=== PATIENT | male | born 1960 | race American Indian/Alaskan Native ===

== ENCOUNTER 2018-08-30 17:50 | Inpatient (IN) | payer OTHER ==
--- NOTE | 2018-08-30 19:03 | Emergency Department Report ---
- General Chief complaint: Weakness Stated complaint: WEAKNESS,PASSING OUT,FALLING Time Seen by Provider: 08/30/18 18:24 Source: patient Mode of arrival: Ambulatory Limitations: No Limitations - History of Present Illness Initial comments: 57-year-old male with history of alcohol abuse presents to ED requesting alcohol detox. states she took patient to [facility] for alcohol rehabilitation, but was instructed that he needed to come to the ER for medical clearance. states patient has long history of alcohol abuse. states patient has been getting worse over the past year, drinking more often and having more frequent falls while intoxicated, having a decreased appetite, having mood swings. The patient was diagnosed with fatty liver and also possible cirrhosis. Patient has no complaints. States he drinks vodka daily. He states he is ready for rehabilitation. Patient states last drink was last night at 9 PM Complaint: generalized weakness -: unknown Location: generalized Consistency: intermittent Improves with: none Worsens with: none Associated Symptoms: nausea/vomiting, shortness of breath, syncope. denies: chest pain, fever/chills, headaches - Related Data Home Medications Medication Instructions Recorded Confirmed Last Taken Amoxicillin 500 mg PO TID 09/01/18 09/01/18 08/30/18 Folic Acid 400 mcg PO DAILY 09/01/18 09/01/18 08/30/18 Tessalon Perles 200 mg PO TID PRN 09/01/18 09/01/18 08/30/18 chlorproMAZINE 25 mg PO TID PRN 09/01/18 09/01/18 08/30/18 Allergies Allergy/AdvReac Type Severity Reaction Status Date / Time No Known Allergies Allergy Verified 08/30/18 18:22 ED Review of Systems ROS: Stated complaint: WEAKNESS,PASSING OUT,FALLING Other details as noted in HPI Comment: All other systems reviewed and negative Constitutional: denies: chills, fever Respiratory: shortness of breath Cardiovascular: denies: chest pain Gastrointestinal: nausea, vomiting. denies: abdominal pain Neurological: denies: headache ED Past Medical Hx - Past Medical History Previous Medical History?: Yes Hx GERD: Yes Hx Liver Disease: Yes (Hepatitis due to ETOH abuse) Additional medical history: Dizziness, Dermatitis, Epigastric abdominal pain, Elevated liver function test, Gastritis, Thrombocytopenia, Both sides inquinal hernia, Sinus problems - Surgical History Past Surgical History?: No - Social History Smoking Status: Current Every Day Smoker Substance Use Type: Alcohol, Marijuana, Prescribed - Medications Home Medications: Home Medications Medication Instructions Recorded Confirmed Last Taken Type Amoxicillin 500 mg PO TID 09/01/18 09/01/18 08/30/18 History Folic Acid 400 mcg PO DAILY 09/01/18 09/01/18 08/30/18 History Tessalon Perles 200 mg PO TID PRN 09/01/18 09/01/18 08/30/18 History chlorproMAZINE 25 mg PO TID PRN 09/01/18 09/01/18 08/30/18 History ED Physical Exam - General Limitations: No Limitations General appearance: alert, in no apparent distress, other (appears frail) - Head Head exam: Present: atraumatic, normocephalic - Eye Eye exam: Present: scleral icterus (slight) - ENT ENT exam: Present: mucous membranes moist - Neck Neck exam: Present: normal inspection - Respiratory Respiratory exam: Present: normal lung sounds bilaterally. Absent: respiratory distress - Cardiovascular Cardiovascular Exam: Present: normal rhythm, tachycardia - GI/Abdominal GI/Abdominal exam: Present: soft. Absent: distended, tenderness - Extremities Exam Extremities exam: Present: normal inspection - Neurological Exam Neurological exam: Present: alert, oriented X3, CN II-XII intact, other (no tremor noted). Absent: motor sensory deficit - Psychiatric Psychiatric exam: Present: normal affect, normal mood - Skin Skin exam: Present: warm, dry, intact, normal color ED Course Vital Signs 08/30/18 08/30/18 08/30/18 17:57 21:16 22:32 Temperature 97.6 F Pulse Rate 127 H 105 H 108 H Respiratory 18 16 16 Rate Blood Pressure 126/66 Blood Pressure 125/73 117/68 [Left] O2 Sat by Pulse 98 96 96 Oximetry 08/31/18 08/31/18 08/31/18 08:57 09:12 09:16 Temperature Pulse Rate 99 H 88 Respiratory 15 21 Rate Blood Pressure 144/84 Blood Pressure [Left] O2 Sat by Pulse 95 98 97 Oximetry 08/31/18 08/31/18 08/31/18 09:30 09:46 10:00 Temperature Pulse Rate 87 77 101 H Respiratory 17 14 18 Rate Blood Pressure 118/70 123/78 Blood Pressure [Left] O2 Sat by Pulse 97 96 98 Oximetry 08/31/18 08/31/18 08/31/18 10:16 10:30 10:46 Temperature Pulse Rate 84 88 90 Respiratory 14 15 18 Rate Blood Pressure 123/78 123/78 123/78 Blood Pressure [Left] O2 Sat by Pulse 98 98 99 Oximetry 08/31/18 08/31/18 08/31/18 11:00 11:16 11:30 Temperature Pulse Rate 92 H 175 H 96 H Respiratory 15 30 H 21 Rate Blood Pressure 124/79 124/79 124/79 Blood Pressure [Left] O2 Sat by Pulse 97 96 93 Oximetry 08/31/18 08/31/18 08/31/18 11:46 12:00 12:16 Temperature Pulse Rate 102 H 89 90 Respiratory 19 20 16 Rate Blood Pressure 124/79 123/78 124/79 Blood Pressure [Left] O2 Sat by Pulse 97 98 Oximetry 08/31/18 08/31/18 08/31/18 12:30 12:46 13:00 Temperature Pulse Rate 91 H 117 H 117 H Respiratory 17 26 H 22 Rate Blood Pressure 123/78 123/78 Blood Pressure [Left] O2 Sat by Pulse 97 94 93 Oximetry 08/31/18 08/31/18 08/31/18 13:16 13:30 13:46 Temperature Pulse Rate 109 H 89 100 H Respiratory 21 23 25 H Rate Blood Pressure 128/68 128/68 128/68 Blood Pressure [Left] O2 Sat by Pulse 96 98 98 Oximetry 08/31/18 08/31/18 08/31/18 14:00 14:16 14:30 Temperature Pulse Rate 99 H 114 H 106 H Respiratory 20 24 20 Rate Blood Pressure 134/71 134/71 134/71 Blood Pressure [Left] O2 Sat by Pulse 100 98 96 Oximetry 08/31/18 08/31/18 14:46 15:02 Temperature 98.4 F Pulse Rate 121 H 104 H Respiratory 24 18 Rate Blood Pressure 134/71 120/71 Blood Pressure [Left] O2 Sat by Pulse 98 98 Oximetry ED Medical Decision Making - Lab Data Result diagrams: 09/03/18 05:42 09/03/18 05:42 - EKG Data -: EKG Interpreted by Md EKG shows normal: sinus rhythm, axis, intervals, QRS complexes, ST-T waves Rate: tachycardia - EKG Data Interpretation: no acute changes - Radiology Data Radiology results: report reviewed, image reviewed - Medical Decision Making 57 yo M here for medical clearance for alcohol detox. Workup normal, except for known liver disease. Pt was initially tachycardic. Likely due to dehydration, pt reports he has had decreased appetite lately. Pt does not appear to be in withdrawal, not hypertensive, not tremulous. Pt given one banana bag and 2L of NS. Drug screen was also positive for amphetamines, which could have also caused his tachycardia. HR currently normal, in the 90s. Pt is medically clear for psychiatric admission. - Differential Diagnosis alcohol abuse, intrcranial bleed, electrolyte abnormality Critical care attestation.: If time is entered above; I have spent that time in minutes in the direct care of this critically ill patient, excluding procedure time. ED Disposition Clinical Impression: Alcohol abuse, Alcohol withdrawal, Tachycardia, Hyponatremia, Abnormal EKG, Chr onic liver disease, Amphetamine abuse, Cachexia Disposition: DC/TX-65 PSY HOSP/PSY UNIT Is pt being admited?: No Condition: Stable
[2018-08-30 19:41] LABS: Hematocrit 30.9 % (35.5-45.6); Mean Corpuscular HGB Conc 33 % (32-34); Mean Corpuscular Hemoglobin 29 pg (28-32); Mean Corpuscular Volume 89 fl (84-94); Red Blood Count 3.49 M/mm3 (3.65-5.03); Red Cell Distribution Width 15.1 % (13.2-15.2)
[2018-08-30 19:52] LABS: INR 1.21 (0.87-1.13); Partial Thromboplastin Time 28.6 Sec. (24.2-36.6)
[2018-08-30 19:59] LABS: Alanine Aminotransferase 41 units/L (7-56); Albumin 2.9 g/dL (3.9-5); BUN/Creatinine Ratio 8; Blood Urea Nitrogen 5 mg/dL (9-20); Calcium 8.3 mg/dL (8.4-10.2); Hemolysis Index 2
[2018-08-30] MEDS ORDERED: VITAMIN B-1 100 MG, FOLVITE 1 MG, INFUVITE 10 ML in NACL 0.9% 1000 ML 1,000 ML IV ONE (20:02)
--- NOTE | 2018-08-30 20:07 | XRay Report ---
FINAL REPORT EXAM: XR CHEST 1V AP HISTORY: sob COMPARISON: None available. FINDINGS: Frontal view(s) of the chest obtained. Cardiac silhouette within normal limits. No gross consolidatio n or effusion. No pneumothorax. IMPRESSION: No grossly acute findings.
--- NOTE | 2018-08-30 20:35 | Cat Scan Report ---
FINAL REPORT EXAM: CT HEAD/BRAIN WO CON HISTORY: frequent falls COMPARISON: None available. TECHNIQUE: Axial images obtained skull base through vertex. FINDINGS: No acute intracranial hemorrhage, midline shift or pathologic extra axial fluid collection. Ventricle s and cisterns are normal in size and configuration for the patient's age. Mederos-white differentiation preserved. Calvarium grossly intact. Ocular globes are grossly unremarkable. IMPRESSION: No grossly acute intracranial abnormality.
[2018-08-30 20:42] LABS: Band Neutrophils # (Manual) 0.2 K/mm3; Eosinophils % (Manual) 0 % (0.0-4.3); Total Cells Counted 100
[2018-08-30 20:44] LABS: Target Cells 1+
[2018-08-30 20:45] LABS: Hypochromasia 1+; Platelet Count 53 K/mm3 (140-440); Platelet Estimate Appears Decreased
[2018-08-30 21:29] LABS: Bilirubin,Urine SM (Negative); Blood,Urine NEG (Negative); Color,Urine Amber (Yellow); Hyaline Casts,Urine 3 /LPF; Mucus,Urine FEW /HPF
[2018-08-30] MEDS ORDERED: NACL 0.9% 1000 ML 1,000 ML IV ONE ×2 (22:04→23:55)
[2018-08-30 22:53] LABS: Ictotest,Urine Negative (Negative)
[2018-08-31 01:54] LABS: Benzodiazepines Screen,Urine PRESUMPTIVE NEGATIVE; Cannabinoid Screen,Urine PRESUMPTIVE NEGATIVE; Cocaine Screen,Urine PRESUMPTIVE NEGATIVE; Methadone Screen,Urine PRESUMPTIVE NEGATIVE; Opiate Screen,Urine PRESUMPTIVE NEGATIVE
[2018-08-31] MEDS ORDERED: ATIVAN PO ONE (02:11)
[2018-08-31 02:38] LABS: Amphetamine Screen,Urine PRESUMPTIVE POSITIVE
--- NOTE | 2018-08-31 13:16 | Consultation ---
History of Present Illness - Reason for Consult Consult date: 08/31/18 Reason for consult: Mental Health Evaluation Requesting physician: LAILA LOPEZ - Chief Complaint Chief complaint: "I want to stop drinking" - History of Present Psychiatric Illness 57-year-old AA male with history of alcohol abuse presents to ED requesting alcohol detox. Today the patient is calm and cooperative during the assessment. He stated a long hx of alcohol abuse. He stated that he would like help with staying sober. He stated that he haven't been to rehab services in the past. He stated that he enjoy drinking because of the taste. Per the patient's Mrs Muna Arriaga, she stated that she was referred to [facility] by [facility] November 2017. She stated that her didn't go to [facility] because he st opped drinking (etoh), but relapsed recently. They both agree that [facility] would be the facility of choice once medically clear. The patient denies depression, SI/HI's, AVH''s. He denies erratic sleep and a poor appetite. He denies recreational drug use. Medications and Allergies Allergies Allergy/AdvReac Type Severity Reaction Status Date / Time No Known Allergies Allergy Verified 08/30/18 18:22 Mental Status Exam - Vital signs Last Vital Signs Temp 97.6 F 08/30/18 17:57 Pulse 90 08/31/18 12:16 Resp 16 08/31/18 12:16 BP 124/79 08/31/18 12:16 Pulse Ox 98 08/31/18 12:16 - Exam Narrative exam: MSE: Appearance: calm, cooperative Behavior: regular eye contact Speech: regular rate and tone Mood: "okay" Affect: congruent to mood Thought Process: logical Thought Content: denies SI/HI's and AVH's Motor Activity: lying in bed Cognition: A/O x3 Insight: appropriate Judgment: fair Results Result Diagrams: 08/31/18 13:49 08/31/18 13:49 Abnormal lab results 08/30/18 08/30/18 08/30/18 Range/Units 19:16 19:16 19:16 WBC 4.4 L (4.5-11.0) K/mm3 RBC 3.49 L (3.65-5.03) M/mm3 Hgb 10.0 L (11.8-15.2) gm/dl Hct 30.9 L (35.5-45.6) % Plt Count 53 L (140-440) K/mm3 Seg Neuts % (Manual) 84.0 H (40.0-70.0) % Lymphocytes % (Manual) 8.0 L (13.4-35.0) % Lymphocytes # (Manual) 0.4 L (1.2-5.4) K/mm3 PT 15.7 H (12.2-14.9) Sec. INR 1.21 H (0.87-1.13) Sodium 133 L (137-145) mmol/L Potassium 3.5 L (3.6-5.0) mmol/L Chloride 93.1 L (98-107) mmol/L BUN 5 L (9-20) mg/dL Creatinine 0.6 L (0.8-1.5) mg/dL Glucose 108 H (75-100) mg/dL Calcium 8.3 L (8.4-10.2) mg/dL Total Bilirubin 1.60 H (0.1-1.2) mg/dL AST 229 H (5-40) units/L Alkaline Phosphatase 157 H (35-129) units/L Albumin 2.9 L (3.9-5) g/dL Urine WBC (Auto) (0.0-6.0) /HPF 08/30/18 Range/Units 21:16 WBC (4.5-11.0) K/mm3 RBC (3.65-5.03) M/mm3 Hgb (11.8-15.2) gm/dl Hct (35.5-45.6) % Plt Count (140-440) K/mm3 Seg Neuts % (Manual) (40.0-70.0) % Lymphocytes % (Manual) (13.4-35.0) % Lymphocytes # (Manual) (1.2-5.4) K/mm3 PT (12.2-14.9) Sec. INR (0.87-1.13) Sodium (137-145) mmol/L Potassium (3.6-5.0) mmol/L Chloride (98-107) mmol/L BUN (9-20) mg/dL Creatinine (0.8-1.5) mg/dL Glucose (75-100) mg/dL Calcium (8.4-10.2) mg/dL Total Bilirubin (0.1-1.2) mg/dL AST (5-40) units/L Alkaline Phosphatase (35-129) units/L Albumin (3.9-5) g/dL Urine WBC (Auto) 7.0 H (0.0-6.0) /HPF All other labs normal. Assessment and Plan Assessment and plan: Impression: Alcohol Use DO. Today the patient is calm and cooperative during the assessment. Mild tremors noted (etoh). The patient is tachycardic. DDx: R/O Mood DO Recommendation/Plan: Recommend [facility] Protocol. Dispo: Assist patient with placement to [facility] if medically clear. Will staff with Dr Surjit Chavez.
[2018-08-31] MEDS ORDERED: ATIVAN IV ONE (13:19)
[2018-08-31] MEDS ORDERED: VITAMIN B-1 100 MG, FOLVITE 1 MG, INFUVITE 10 ML in NACL 0.9% 1000 ML 1,000 ML IV ONE (13:19)
--- NOTE | 2018-08-31 13:31 | Emergency Department Report ---
ED General Adult HPI - General Chief complaint: Weakness Stated complaint: WEAKNESS,PASSING OUT,FALLING Time Seen by Provider: 08/30/18 18:24 Source: patient Mode of arrival: Ambulatory Limitations: No Limitations - History of Present Illness Initial comments: This is a 57-year-old alcoholic man who was initially asked to discharge by nurse. It was not evident that discharge was appropriate. Therefore, I reviewed his records and saw the patient. Records indicate: 57-year-old male with history of alcohol abuse presents to ED requesting alcohol detox. states she just patient to [facility] for alcohol rehabilitation, but was instructed that he needed to come to the ER for similar medical clearance. states patient has long history of alcohol abuse. states patient has been getting worse over the past year, drinking more often and having more frequent falls while intoxicated, having a decreased appetite, having mood swings. The patient was diagnosed with fatty liver and also possible cirrhosis. Patient has no complaints. States he drinks vodka daily. He states he is ready for rehabilitation. Patient states last drink was last night at 9 PM. Patient tells me that he feels weak in general. He states he's passed out. He does not report head trauma. I sees had a CT yesterday showed no acute intracranial pathology. He was given fluids and Ativan. He is oriented at this time. He states he is not tremulous but he obviously is. He denies previous seizures. He is a virus for alcohol detoxification. He is also positive for amphetamines. - Related Data Allergies Allergy/AdvReac Type Severity Reaction Status Date / Time No Known Allergies Allergy Verified 08/30/18 18:22 ED Review of Systems ROS: Stated complaint: WEAKNESS,PASSING OUT,FALLING Other details as noted in HPI Constitutional: denies: chills, fever Respiratory: shortness of breath Cardiovascular: denies: chest pain Gastrointestinal: nausea, vomiting. denies: abdominal pain Neurological: denies: headache ED Past Medical Hx - Past Medical History Previous Medical History?: Yes Hx GERD: Yes Hx Liver Disease: Yes (Hepatitis due to ETOH abuse) Additional medical history: Dizziness, Dermatitis, Epigastric abdominal pain, Elevated liver function test, Gastritis, Thrombocytopenia, Both sides inquinal hernia, Sinus problems - Surgical History Past Surgical History?: No - Social History Smoking Status: Current Every Day Smoker Substance Use Type: Alcohol, Marijuana, Prescribed ED Physical Exam - General Limitations: No Limitations General appearance: alert, in no apparent distress, other (appears frail) ED Course Vital Signs 08/30/18 08/30/18 08/30/18 17:57 21:16 22:32 Temperature 97.6 F Pulse Rate 127 H 105 H 108 H Respiratory 18 16 16 Rate Blood Pressure 126/66 Blood Pressure 125/73 117/68 [Left] O2 Sat by Pulse 98 96 96 Oximetry 08/31/18 08/31/18 08/31/18 08:57 09:12 09:16 Temperature Pulse Rate 99 H 88 Respiratory 15 21 Rate Blood Pressure 144/84 Blood Pressure [Left] O2 Sat by Pulse 95 98 97 Oximetry 08/31/18 08/31/18 08/31/18 09:30 09:46 10:00 Temperature Pulse Rate 87 77 101 H Respiratory 17 14 18 Rate Blood Pressure 118/70 123/78 Blood Pressure [Left] O2 Sat by Pulse 97 96 98 Oximetry 08/31/18 08/31/18 08/31/18 10:16 10:30 10:46 Temperature Pulse Rate 84 88 90 Respiratory 14 15 18 Rate Blood Pressure 123/78 123/78 123/78 Blood Pressure [Left] O2 Sat by Pulse 98 98 99 Oximetry 08/31/18 08/31/18 08/31/18 11:00 11:16 11:30 Temperature Pulse Rate 92 H 175 H 96 H Respiratory 15 30 H 21 Rate Blood Pressure 124/79 124/79 124/79 Blood Pressure [Left] O2 Sat by Pulse 97 96 93 Oximetry 08/31/18 08/31/18 08/31/18 11:46 12:00 12:16 Temperature Pulse Rate 102 H 89 90 Respiratory 19 20 16 Rate Blood Pressure 124/79 123/78 124/79 Blood Pressure [Left] O2 Sat by Pulse 97 98 Oximetry - Reevaluation(s) Reevaluation #1: Spoke with the [facility] physician on-call Dr. Palma. They have authorized admission here. I have expanded the patient's workup. I will discuss the plan with Dr. Leigh. The patient will be admitted to the hospitalist service by Dr. Leigh. 08/31/18 13:39 ED Medical Decision Making - Lab Data Result diagrams: 08/30/18 19:16 08/30/18 19:16 Laboratory Results - last 24 hr 08/30/18 08/30/1818 19:16 19:16 19:16 WBC 4.4 L RBC 3.49 L Hgb 10.0 L Hct 30.9 L MCV 89 MCH 29 MCHC 33 RDW 15.1 Plt Count 53 L Add Manual Diff Complete Total Counted 100 Seg Neuts % (Manual) 84.0 H Band Neutrophils % 5.0 Lymphocytes % (Manual) 8.0 L Reactive Lymphs % (Man) 0 Monocytes % (Manual) 2.0 Eosinophils % (Manual) 0 Basophils % (Manual) 1.0 Metamyelocytes % 0 Myelocytes % 0 Promyelocytes % 0 Blast Cells % 0 Nucleated RBC % Not Reportable Seg Neutrophils # Man 3.7 Band Neutrophils # 0.2 Lymphocytes # (Manual) 0.4 L Abs React Lymphs (Man) 0.0 Monocytes # (Manual) 0.1 Eosinophils # (Manual) 0.0 Basophils # (Manual) 0.0 Metamyelocytes # 0.0 Myelocytes # 0.0 Promyelocytes # 0.0 Blast Cells # 0.0 WBC Morphology Not Reportable Hypersegmented Neuts Not Reportable Hyposegmented Neuts Not Reportable Hypogranular Neuts Not Reportable Smudge Cells Not Reportable Toxic Granulation Not Reportable Toxic Vacuolation Not Reportable Dohle Bodies Not Reportable Pelger-Huet Anomaly Not Reportable Hugo Rods Not Reportable Platelet Estimate Appears decreased Clumped Platelets Not Reportable Plt Clumps, EDTA Not Reportable Large Platelets Not Reportable Giant Platelets Not Reportable Platelet Satelliting Not Reportable Plt Morphology Comment Not Reportable RBC Morphology Not Reportable Dimorphic RBCs Not Reportable Polychromasia Not Reportable Hypochromasia 1+ Poikilocytosis Not Reportable Anisocytosis Not Reportable Microcytosis Not Reportable Macrocytosis Not Reportable Spherocytes Not Reportable Pappenheimer Bodies Not Reportable Sickle Cells Not Reportable Target Cells 1+ Tear Drop Cells Not Reportable Ovalocytes Not Reportable Helmet Cells Not Reportable [place] Bodies Not Reportable [place] Rings Not Reportable Esau Cells Not Reportable Bite Cells Not Reportable Crenated Cell Not Reportable Elliptocytes Not Reportable Acanthocytes (Spur) Not Reportable Rouleaux Not Reportable Hemoglobin C Crystals Not Reportable Schistocytes Not Reportable Malaria parasites Not Reportable Carlos Eduardo Bodies Not Reportable Hem Pathologist Commnt No PT INR APTT Sodium 133 L Potassium 3.5 L Chloride 93.1 L Carbon Dioxide 26 Anion Gap 17 BUN 5 L Creatinine 0.6 L Estimated GFR > 60 BUN/Creatinine Ratio 8 Glucose 108 H Calcium 8.3 L Total Bilirubin 1.60 H AST 229 H ALT 41 Alkaline Phosphatase 157 H Troponin T < 0.010 Total Protein 7.9 Albumin 2.9 L Albumin/Globulin Ratio 0.6 Urine Color Urine Turbidity Urine pH Ur Specific [place] Urine Protein Urine Glucose (UA) Urine Ketones Urine Blood Urine Nitrite Urine Bilirubin Urine Ictotest Urine Urobilinogen Ur Leukocyte Esterase Urine WBC (Auto) Urine RBC (Auto) Hyaline Casts Urine Mucus Urine Opiates Screen Urine Methadone Screen Ur Barbiturates Screen Ur Phencyclidine Scrn Ur Amphetamines Screen U Benzodiazepines Scrn Urine Cocaine Screen U Marijuana (THC) Screen Drugs of Abuse Note Plasma/Serum Alcohol < 0.01 08/30/18 08/30/18 08/30/18 19:16 21:16 Unknown WBC RBC Hgb Hct MCV MCH MCHC RDW Plt Count Add Manual Diff Total Counted Seg Neuts % (Manual) Band Neutrophils % Lymphocytes % (Manual) Reactive Lymphs % (Man) Monocytes % (Manual) Eosinophils % (Manual) Basophils % (Manual) Metamyelocytes % Myelocytes % Promyelocytes % Blast Cells % Nucleated RBC % Seg Neutrophils # Man Band Neutrophils # Lymphocytes # (Manual) Abs React Lymphs (Man) Monocytes # (Manual) Eosinophils # (Manual) Basophils # (Manual) Metamyelocytes # Myelocytes # Promyelocytes # Blast Cells # WBC Morphology Hypersegmented Neuts Hyposegmented Neuts Hypogranular Neuts Smudge Cells Toxic Granulation Toxic Vacuolation Dohle Bodies Pelger-Huet Anomaly Hugo Rods Platelet Estimate Clumped Platelets Plt Clumps, EDTA Large Platelets Giant Platelets Platelet Satelliting Plt Morphology Comment RBC Morphology Dimorphic RBCs Polychromasia Hypochromasia Poikilocytosis Anisocytosis Microcytosis Macrocytosis Spherocytes Pappenheimer Bodies Sickle Cells Target Cells Tear Drop Cells Ovalocytes Helmet Cells [place] Bodies [place] Rings Esau Cells Bite Cells Crenated Cell Elliptocytes Acanthocytes (Spur) Rouleaux Hemoglobin C Crystals Schistocytes Malaria parasites Carlos Eduardo Bodies Hem Pathologist Commnt PT 15.7 H INR 1.21 H APTT 28.6 Sodium Potassium Chloride Carbon Dioxide Anion Gap BUN Creatinine Estimated GFR BUN/Creatinine Ratio Glucose Calcium Total Bilirubin AST ALT Alkaline Phosphatase Troponin T Total Protein Albumin Albumin/Globulin Ratio Urine Color Deneen Urine Turbidity Slightly-cloudy Urine pH 7.0 Ur Specific [place] 1.015 Urine Protein 30 mg/dl Urine Glucose (UA) Neg Urine Ketones Neg Urine Blood Neg Urine Nitrite Neg Urine Bilirubin Sm Urine Ictotest Negative Urine Urobilinogen 4.0 Ur Leukocyte Esterase Neg Urine WBC (Auto) 7.0 H Urine RBC (Auto) 2.0 Hyaline Casts 3 Urine Mucus Few Urine Opiates Screen Presumptive negative Urine Methadone Screen Presumptive negative Ur Barbiturates Screen Presumptive negative Ur Phencyclidine Scrn Presumptive negative Ur Amphetamines Screen Presumptive positive U Benzodiazepines Scrn Presumptive negative Urine Cocaine Screen Presumptive negative U Marijuana (THC) Screen Presumptive negative Drugs of Abuse Note Disclamer Plasma/Serum Alcohol - EKG Data -: EKG Interpreted by Me EKG shows normal: sinus rhythm, axis, intervals, QRS complexes Rate: normal - EKG Data Interpretation: other (patient has inferolateral ST depression) Critical care attestation.: If time is entered above; I have spent that time in minutes in the direct care of this critically ill patient, excluding procedure time. ED Disposition Clinical Impression: Alcohol abuse, Tachycardia, Hyponatremia, Abnormal EKG, Chronic liver disease Alcohol withdrawal Qualifiers: Complication of substance-induced condition: with perceptual disturbance Qualified Code(s): F10.232 - Alcohol dependence with withdrawal with perceptual disturbance Disposition: DC/TX-65 PSY HOSP/PSY UNIT Is pt being admited?: Yes Does the pt Need Aspirin: No Condition: Stable Referrals: PRIMARY CARE, [Primary Care Provider] - 3-5 Days Time of Disposition: 13:40
[2018-08-31 14:07] LABS: Eosinophils % (Auto) 0.5 % (0.0-4.3); Hemoglobin 9.9 gm/dl (11.8-15.2); Lymphocytes # (Auto) 0.6 K/mm3 (1.2-5.4); Lymphocytes % (Auto) 17.4 % (13.4-35.0); Mean Corpuscular HGB Conc 32 % (32-34); Mean Corpuscular Hemoglobin 29 pg (28-32); Mean Corpuscular Volume 90 fl (84-94); Monocytes # (Auto) 0.3 K/mm3 (0.0-0.8); Monocytes % (Auto) 8.1 % (0.0-7.3); Red Blood Count 3.46 M/mm3 (3.65-5.03); Red Cell Distribution Width 14.9 % (13.2-15.2)
[2018-08-31 14:13] LABS: INR 1.27 (0.87-1.13)
[2018-08-31 14:14] LABS: Partial Thromboplastin Time 30.8 Sec. (24.2-36.6)
[2018-08-31 14:20] LABS: BUN/Creatinine Ratio 10; Blood Urea Nitrogen 5 mg/dL (9-20); Calcium 7.6 mg/dL (8.4-10.2); Hemolysis Index 7
[2018-08-31 14:22] LABS: Creatine Kinase MB 1.3 ng/mL (0.0-4.0); Platelet Count 51 K/mm3 (140-440)
[2018-08-31 14:24] LABS: Lipase 128 units/L (13-60)
[2018-08-31 14:32] LABS: Free T4 (Free Thyroxine) 1.14 ng/dL (0.76-1.46); Hepatitis A Antibody IgM Non-Reactive (NonReactive); Hepatitis B Core IgM Non-Reactive (NonReactive); Hepatitis B Surface Antigen Non-Reactive (Negative); Hepatitis C Virus Antibody Non-Reactive (NonReactive)
--- NOTE | 2018-08-31 18:09 | History and Physical Report ---
History of Present Illness Date of examination: 08/31/18 Date of admission: 08/31/18 13:41 Chief complaint: Chief complaint: EtOH dependence and withdrawal. Wants help with the detox. Referred by [facility] for medical clearance History of present illness: History of Present Illness: 57-year-old male with history of alcohol abuse for last 30 years and history of transaminitis, hepatitis and GERD comes in for help with detox. Patient was referred by [facility] for medical clearance. Patient had no seizures. Patient is very tremulous and nervous. Patient has been doing a pint of vodka for last few years. He wants to quit drinking from now on. His last drink was 4 days ago. No nausea vomiting. No diarrhea. No shortness of breath fever or chills. No recent travel. Past Medical History Previous Medical History?: Yes Hx GERD: Yes Hx Liver Disease: Yes (Hepatitis due to ETOH abuse) Additional medical history: Dizziness, Dermatitis, Epigastric abdominal pain, Elevated liver function test, Gastritis, Thrombocytopenia, Both sides inquinal hernia, Sinus problems Surgical History Past Surgical History?: No Social History Smoking Status: Current Every Day Smoker Substance Use Type: Alcohol, Marijuana, Prescribed Family history Htn Review of systems ROS: Stated complaint: WEAKNESS,PASSING OUT,FALLING Other details as noted in HPI Comment: All other systems reviewed and negative Constitutional: denies: chills, fever Respiratory: shortness of breath Cardiovascular: denies: chest pain Gastrointestinal: nausea, vomiting. denies: abdominal pain Neurological: denies: headache Medications and Allergies Allergies Allergy/AdvReac Type Severity Reaction Status Date / Time No Known Allergies Allergy Verified 08/30/18 18:22 Exam - Constitutional Vitals: Temp Pulse Resp BP Pulse Ox 98.4 F 104 H 18 120/71 98 08/31/18 15:02 08/31/18 15:02 08/31/18 15:02 08/31/18 15:02 08/31/18 15:02 General appearance: Present: no acute distress, well-nourished - EENT Eyes: Present: PERRL ENT: hearing intact, clear oral mucosa - Neck Neck: Present: supple, normal ROM - Respiratory Respiratory effort: normal Respiratory: bilateral: CTA - Cardiovascular Heart rate: 111 Rhythm: regular Heart Sounds: Present: S1 & S2. Absent: rub, click - Extremities Extremities: no ischemia, pulses intact, pulses symmetrical, No edema Peripheral Pulses: within normal limits - Abdominal General gastrointestinal: Present: soft, non-tender, non-distended, normal bowel sounds Male genitourinary: Present: normal - Rectal Rectal Exam: deferred - Integumentary Integumentary: Present: clear, warm, dry - Musculoskeletal Musculoskeletal: strength equal bilaterally, other (tremulous and nervous) - Psychiatric Psychiatric: appropriate mood/affect, intact judgment & insight - Neurologic Neurologic: CNII-XII intact, moves all extremities - Allied Health Allied health notes reviewed: nursing, case management Results - Labs CBC & Chem 7: 08/31/18 13:49 08/31/18 13:49 Labs: Laboratory Last Values WBC 3.3 K/mm3 (4.5-11.0) L 08/31/18 13:49 RBC 3.46 M/mm3 (3.65-5.03) L 08/31/18 13:49 Hgb 9.9 gm/dl (11.8-15.2) L 08/31/18 13:49 Hct 31.0 % (35.5-45.6) L 08/31/18 13:49 MCV 90 fl (84-94) 08/31/18 13:49 MCH 29 pg (28-32) 08/31/18 13:49 MCHC 32 % (32-34) 08/31/18 13:49 RDW 14.9 % (13.2-15.2) 08/31/18 13:49 Plt Count 51 K/mm3 (140-440) L 08/31/18 13:49 Lymph % (Auto) 17.4 % (13.4-35.0) 08/31/18 13:49 [place] % (Auto) 8.1 % (0.0-7.3) H 08/31/18 13:49 Eos % (Auto) 0.5 % (0.0-4.3) 08/31/18 13:49 Baso % (Auto) 1.0 % (0.0-1.8) 08/31/18 13:49 Lymph # 0.6 K/mm3 (1.2-5.4) L 08/31/18 13:49 [place] # 0.3 K/mm3 (0.0-0.8) 08/31/18 13:49 Eos # 0.0 K/mm3 (0.0-0.4) 08/31/18 13:49 Baso # 0.0 K/mm3 (0.0-0.1) 08/31/18 13:49 Add Manual Diff Complete 08/30/18 19:16 Total Counted 100 08/30/18 19:16 Seg Neutrophils % 73.0 % (40.0-70.0) H 08/31/18 13:49 Seg Neuts % (Manual) 84.0 % (40.0-70.0) H 08/30/18 19:16 Band Neutrophils % 5.0 % 08/30/18 19:16 Lymphocytes % (Manual) 8.0 % (13.4-35.0) L 08/30/18 19:16 Reactive Lymphs % (Man) 0 % 08/30/18 19:16 Monocytes % (Manual) 2.0 % (0.0-7.3) 08/30/18 19:16 Eosinophils % (Manual) 0 % (0.0-4.3) 08/30/18 19:16 Basophils % (Manual) 1.0 % (0.0-1.8) 08/30/18 19:16 Metamyelocytes % 0 % 08/30/18 19:16 Myelocytes % 0 % 08/30/18 19:16 Promyelocytes % 0 % 08/30/18 19:16 Blast Cells % 0 % 08/30/18 19:16 Nucleated RBC % Not Reportable 08/30/18 19:16 Seg Neutrophils # 2.4 K/mm3 (1.8-7.7) 08/31/18 13:49 Seg Neutrophils # Man 3.7 K/mm3 (1.8-7.7) 08/30/18 19:16 Band Neutrophils # 0.2 K/mm3 08/30/18 19:16 Lymphocytes # (Manual) 0.4 K/mm3 (1.2-5.4) L 08/30/18 19:16 Abs React Lymphs (Man) 0.0 K/mm3 08/30/18 19:16 Monocytes # (Manual) 0.1 K/mm3 (0.0-0.8) 08/30/18 19:16 Eosinophils # (Manual) 0.0 K/mm3 (0.0-0.4) 08/30/18 19:16 Basophils # (Manual) 0.0 K/mm3 (0.0-0.1) 08/30/18 19:16 Metamyelocytes # 0.0 K/mm3 08/30/18 19:16 Myelocytes # 0.0 K/mm3 08/30/18 19:16 Promyelocytes # 0.0 K/mm3 08/30/18 19:16 Blast Cells # 0.0 K/mm3 08/30/18 19:16 WBC Morphology Not Reportable 08/30/18 19:16 Hypersegmented Neuts Not Reportable 08/30/18 19:16 Hyposegmented Neuts Not Reportable 08/30/18 19:16 Hypogranular Neuts Not Reportable 08/30/18 19:16 Smudge Cells Not Reportable 08/30/18 19:16 Toxic Granulation Not Reportable 08/30/18 19:16 Toxic Vacuolation Not Reportable 08/30/18 19:16 Dohle Bodies Not Reportable 08/30/18 19:16 Pelger-Huet Anomaly Not Reportable 08/30/18 19:16 Hugo Rods Not Reportable 08/30/18 19:16 Platelet Estimate Appears decreased 08/30/18 19:16 Clumped Platelets Not Reportable 08/30/18 19:16 Plt Clumps, EDTA Not Reportable 08/30/18 19:16 Large Platelets Not Reportable 08/30/18 19:16 Giant Platelets Not Reportable 08/30/18 19:16 Platelet Satelliting Not Reportable 08/30/18 19:16 Plt Morphology Comment Not Reportable 08/30/18 19:16 RBC Morphology Not Reportable 08/30/18 19:16 Dimorphic RBCs Not Reportable 08/30/18 19:16 Polychromasia Not Reportable 08/30/18 19:16 Hypochromasia 1+ 08/30/18 19:16 Poikilocytosis Not Reportable 08/30/18 19:16 Anisocytosis Not Reportable 08/30/18 19:16 Microcytosis Not Reportable 08/30/18 19:16 Macrocytosis Not Reportable 08/30/18 19:16 Spherocytes Not Reportable 08/30/18 19:16 Pappenheimer Bodies Not Reportable 08/30/18 19:16 Sickle Cells Not Reportable 08/30/18 19:16 Target Cells 1+ 08/30/18 19:16 Tear Drop Cells Not Reportable 08/30/18 19:16 Ovalocytes Not Reportable 08/30/18 19:16 Helmet Cells Not Reportable 08/30/18 19:16 [place] Bodies Not Reportable 08/30/18 19:16 [place] Rings Not Reportable 08/30/18 19:16 [place] Cells Not Reportable 08/30/18 19:16 Bite Cells Not Reportable 08/30/18 19:16 Crenated Cell Not Reportable 08/30/18 19:16 Elliptocytes Not Reportable 08/30/18 19:16 Acanthocytes (Spur) Not Reportable 08/30/18 19:16 Rouleaux Not Reportable 08/30/18 19:16 Hemoglobin C Crystals Not Reportable 08/30/18 19:16 Schistocytes Not Reportable 08/30/18 19:16 Malaria parasites Not Reportable 08/30/18 19:16 Carlos Eduardo Bodies Not Reportable 08/30/18 19:16 Hem Pathologist Commnt No 08/30/18 19:16 PT 16.3 Sec. (12.2-14.9) H 08/31/18 13:49 INR 1.27 (0.87-1.13) H 08/31/18 13:49 APTT 30.8 Sec. (24.2-36.6) 08/31/18 13:49 Sodium 137 mmol/L (137-145) 08/31/18 13:49 Potassium 3.2 mmol/L (3.6-5.0) L 08/31/18 13:49 Chloride 101.6 mmol/L (98-107) 08/31/18 13:49 Carbon Dioxide 24 mmol/L (22-30) 08/31/18 13:49 Anion Gap 15 mmol/L 08/31/18 13:49 BUN 5 mg/dL (9-20) L 08/31/18 13:49 Creatinine 0.5 mg/dL (0.8-1.5) L 08/31/18 13:49 Estimated GFR > 60 ml/min 08/31/18 13:49 BUN/Creatinine Ratio 10 % 08/31/18 13:49 Glucose 171 mg/dL (75-100) H 08/31/18 13:49 Lactic Acid 3.30 mmol/L (0.7-2.0) H* 08/31/18 15:15 Calcium 7.6 mg/dL (8.4-10.2) L 08/31/18 13:49 Magnesium 1.00 mg/dL (1.7-2.3) L 08/31/18 13:49 Total Bilirubin 1.60 mg/dL (0.1-1.2) H 08/30/18 19:16 AST 229 units/L (5-40) H 08/30/18 19:16 ALT 41 units/L (7-56) 08/30/18 19:16 Alkaline Phosphatase 157 units/L (35-129) H 08/30/18 19:16 Ammonia 65.0 umol/L (25-60) H 08/31/18 13:49 Total Creatine Kinase 118 units/L (55-170) 08/31/18 13:49 CK-MB (CK-2) 1.3 ng/mL (0.0-4.0) 08/31/18 13:49 CK-MB (CK-2) Rel Index 1.1 (0-4) 08/31/18 13:49 Troponin T < 0.010 ng/mL (0.00-0.029) 08/31/18 13:49 NT-Pro-B Natriuret Pep 126.1 pg/mL (0-900) 08/31/18 13:49 Total Protein 7.9 g/dL (6.3-8.2) 08/30/18 19:16 Albumin 2.9 g/dL (3.9-5) L 08/30/18 19:16 Albumin/Globulin Ratio 0.6 % 08/30/18 19:16 Lipase 128 units/L (13-60) H 08/31/18 13:49 TSH 2.380 mlU/mL (0.270-4.200) 08/31/18 13:49 Free T4 1.14 ng/dL (0.76-1.46) 08/31/18 13:49 Urine Color [place] (Yellow) 08/30/18 21:16 Urine Turbidity Slightly-cloudy (Clear) 08/30/18 21:16 Urine pH 7.0 (5.0-7.0) 08/30/18 21:16 Ur Specific [place] 1.015 (1.003-1.030) 08/30/18 21:16 Urine Protein 30 mg/dl mg/dL (Negative) 08/30/18 21:16 Urine Glucose (UA) Neg mg/dL (Negative) 08/30/18 21:16 Urine Ketones Neg mg/dL (Negative) 08/30/18 21:16 Urine Blood Neg (Negative) 08/30/18 21:16 Urine Nitrite Neg (Negative) 08/30/18 21:16 Urine Bilirubin Sm (Negative) 08/30/18 21:16 Urine Ictotest Negative (Negative) 08/30/18 21:16 Urine Urobilinogen 4.0 mg/dL (<2.0) 08/30/18 21:16 Ur Leukocyte Esterase Neg (Negative) 08/30/18 21:16 Urine WBC (Auto) 7.0 /HPF (0.0-6.0) H 08/30/18 21:16 Urine RBC (Auto) 2.0 /HPF (0.0-6.0) 08/30/18 21:16 Hyaline Casts 3 /LPF 08/30/18 21:16 Urine Mucus Few /HPF 08/30/18 21:16 Urine Opiates Screen Presumptive negative 08/30/18 Unknown Urine Methadone Screen Presumptive negative 08/30/18 Unknown Ur Barbiturates Screen Presumptive negative 08/30/18 Unknown Ur Phencyclidine Scrn Presumptive negative 08/30/18 Unknown Ur Amphetamines Screen Presumptive positive 08/30/18 Unknown U Benzodiazepines Scrn Presumptive negative 08/30/18 Unknown Urine Cocaine Screen Presumptive negative 08/30/18 Unknown U Marijuana (THC) Screen Presumptive negative 08/30/18 Unknown Drugs of Abuse Note Disclamer 08/30/18 Unknown Plasma/Serum Alcohol < 0.01 % (0-0.07) 08/30/18 19:16 Hepatitis A IgM Ab Non-reactive (NonReactive) 08/31/18 13:49 Hep Bs Antigen Non-reactive (Negative) 08/31/18 13:49 Hep B Core IgM Ab Non-reactive (NonReactive) 08/31/18 13:49 Hepatitis C Antibody Non-reactive (NonReactive) 08/31/18 13:49 Short CBC 08/30/18 08/31/18 Range/Units 19:16 13:49 WBC 4.4 L 3.3 L (4.5-11.0) K/mm3 Hgb 10.0 L 9.9 L (11.8-15.2) gm/dl Hct 30.9 L 31.0 L (35.5-45.6) % Plt Count 53 L 51 L (140-440) K/mm3 BMP 08/30/18 08/31/18 19:16 13:49 Sodium 133 L 137 Potassium 3.5 L 3.2 L Chloride 93.1 L 101.6 Carbon Dioxide 26 24 BUN 5 L 5 L Creatinine 0.6 L 0.5 L Glucose 108 H 171 H Calcium 8.3 L 7.6 L Cardiac Enzymes 08/30/18 08/31/18 Range/Units 19:16 13:49 Total Creatine Kinase 118 (55-170) units/L CK-MB (CK-2) 1.3 (0.0-4.0) ng/mL Troponin T < 0.010 < 0.010 (0.00-0.029) ng/mL Liver Function 08/30/18 Range/Units 19:16 Total Bilirubin 1.60 H (0.1-1.2) mg/dL AST 229 H (5-40) units/L ALT 41 (7-56) units/L Alkaline Phosphatase 157 H (35-129) units/L Albumin 2.9 L (3.9-5) g/dL Urine 08/30/18 Range/Units 21:16 Urine Color [place] (Yellow) Urine pH 7.0 (5.0-7.0) Ur Specific [place] 1.015 (1.003-1.030) Urine Protein 30 mg/dl (Negative) mg/dL Urine Glucose (UA) Neg (Negative) mg/dL - Imaging and Cardiology EKG: report reviewed (sinus tachycardia heart rate of 1 11/m no acute ST-T wave changes probable anteroseptal infarct) Assessment and Plan Advance Directives: Yes (full code) - Patient Problems (1) EtOH dependence Current Visit: Yes Status: Chronic Qualifiers: Complication of substance-induced condition: with hallucinations Plan to address problem: Patient may be going into DTs. Patient initiated on Cipro protocol and IV fluids. Mental health consult requested. Patient is strongly dependent on alcohol. Patient is counseling and detox. We will stabilize the patient and sent to detox place. (2) GERD (gastroesophageal reflux disease) Current Visit: Yes Status: Acute Qualifiers: Esophagitis presence: with esophagitis Qualified Code(s): K21.0 - Gastro- esophageal reflux disease with esophagitis Plan to address problem: Continue Protonix (3) Transaminitis Current Visit: Yes Status: Acute Plan to address problem: Hepatitis ABC negative. Patient counseled about alcohol effects on the liver causing transaminitis Patient promises that he'll stop alcohol. (4) Nicotine dependence Current Visit: Yes Status: Chronic Qualifiers: Nicotine product type: cigarettes Plan to address problem: NicoDerm patch every 24 hours. (5) Hypokalemia Current Visit: Yes Status: Acute Plan to address problem: Supplemented (6) Pancytopenia Current Visit: Yes Status: Acute Plan to address problem: Secondary to bone marrow suppression by alcohol Definitely needs help for his EtOH dependence (7) DVT prophylaxis Current Visit: Yes Status: Acute Plan to address problem: Lovenox and GI prophylaxis
[2018-08-31] MEDS ORDERED: HALDOL IV PRN (20:20)
[2018-08-31] MEDS ORDERED: ATIVAN IV PRN (20:20)
[2018-08-31] MEDS: ATIVAN IV PRN (20:52)
[2018-08-31] MEDS: D5NS 1,000 ML IV SCH (20:52)
[2018-09-01] MEDS: ATIVAN IV PRN ×3 (02:51→14:21)
[2018-09-01] MEDS: D5NS 1,000 ML IV SCH (08:48)
--- NOTE | 2018-09-01 09:36 | Progress Note ---
Subjective - Reason for Consult Consult date: 09/01/18 Reason for consult: Psychiatry Follow-up - Chief Complaint Chief complaint: "Hello" 57-year-old AA male with history of alcohol abuse presents to ED requesting alcohol detox. Today the patient is calm and cooperative with some confusion during the assessment. He stated that he would like to stop drinking. During the interview, the patient called out to his Muna several times who was not in the room. He stated that she was watching [employer] videos. He denies SI/HI's and AVH's. Mental Status Exam - Vital signs Last Vital Signs Temp 98.7 F 09/01/18 05:48 Pulse 116 H 09/01/18 05:48 Resp 20 09/01/18 05:48 BP 134/91 09/01/18 05:48 Pulse Ox 97 09/01/18 05:48 - Exam Narrative exam: MSE: Appearance: calm, cooperative Behavior: regular eye contact Speech: regular rate and tone Mood: "okay" Affect: congruent to mood Thought Process: circumstantial Thought Content: denies SI/HI's and AH's Motor Activity: lying in bed Cognition: A/O x2, with some confusion Insight: impaired Judgment: variable Assessment and Plan Impression: Alcohol Use DO. Delirium. Today the patient is calm and cooperative during the assessment. Mild tremors noted (etoh). The patient is tachycardic. DDx: R/O Mood DO Recommendation/Plan: Recommend CIWA Protocol. Will assess the patient daily. Recommend Delirium precautions below: 1. Frequently reorient patient and involve him/her in their care (simple explanations of procedures, tests, medications). 2. Lights on and shades open during daytime hours. 3. Write date and goals of care in a visible place. 4. Try to avoid unnecessary interruptions to sleep during nighttime hours. 5. Obtain glasses, hearing aids from home if patient uses these at baseline. 6. Avoid medications that may exacerbate delirium (especially narcotics, benzodiazepines, barbiturates, ambien, lunesta, and medications with excessive anticholinergic properties). Dispo: Assist patient with possible Partial Hospitalization Program (PHP) placement to [facility] once medically clear. Will staff with Dr Elkin Chavez.
--- NOTE | 2018-09-01 14:01 | Progress Note ---
Assessment and Plan Assessment and plan: Patient is 57 yo man with a history of etoh dependency, tobacco dependency, alcohol hepatitis and GERD who presents to [facility] ED for medical clearance to go to [place] detox program. 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 Follow-up on current diagnosis aMS, still present. Overnight uneventful. Patient denies any chest pain, shortness breath, nausea/vomiting or severe headaches. Imaging, nursing note, chart, labs and old chart reviewed. Discussed with patient. Hospitalist Physical - Physical exam Narrative exam: Gen: cachetic, bmi 16, NAD, Awake, Alert, confused HEENT: NCAT, EOMI, PERRL, OP Clear Neck: supple, no adenopathy, no thyromegaly, no JVD CVS/Heart: Regualar tachy, normal S1S2, pulses present bilaterally Chest/Lungs: CTA B, Symmetrical chest expansion, good air entry bilaterally GI/Abdomen: soft, NTND, good bowel sounds, no guarding or rebound /Bladder: no suprapubic tenderness, no CVA or paraspinal tenderness Extermity/Skin: no c/c/e, no obvious rash MSK: FROM x 4 Neuro: CN 2-12 grossly intact, tremors, doesn't follow commands Psych: confused - Constitutional Vitals: Temp Pulse Resp BP Pulse Ox 98.7 F 101 H 20 159/91 99 09/01/18 11:53 09/01/18 11:53 09/01/18 11:53 09/01/18 11:53 09/01/18 11:53 General appearance: Present: no acute distress. Absent: well-nourished Results - Labs CBC & Chem 7: 08/31/18 13:49 08/31/18 13:49 Labs: Laboratory Last Values WBC 3.3 K/mm3 (4.5-11.0) L 08/31/18 13:49 RBC 3.46 M/mm3 (3.65-5.03) L 08/31/18 13:49 Hgb 9.9 gm/dl (11.8-15.2) L 08/31/18 13:49 Hct 31.0 % (35.5-45.6) L 08/31/18 13:49 MCV 90 fl (84-94) 08/31/18 13:49 MCH 29 pg (28-32) 08/31/18 13:49 MCHC 32 % (32-34) 08/31/18 13:49 RDW 14.9 % (13.2-15.2) 08/31/18 13:49 Plt Count 51 K/mm3 (140-440) L 08/31/18 13:49 Lymph % (Auto) 17.4 % (13.4-35.0) 08/31/18 13:49 [place] % (Auto) 8.1 % (0.0-7.3) H 08/31/18 13:49 Eos % (Auto) 0.5 % (0.0-4.3) 08/31/18 13:49 Baso % (Auto) 1.0 % (0.0-1.8) 08/31/18 13:49 Lymph # 0.6 K/mm3 (1.2-5.4) L 08/31/18 13:49 [place] # 0.3 K/mm3 (0.0-0.8) 08/31/18 13:49 Eos # 0.0 K/mm3 (0.0-0.4) 08/31/18 13:49 Baso # 0.0 K/mm3 (0.0-0.1) 08/31/18 13:49 Add Manual Diff Complete 08/30/18 19:16 Total Counted 100 08/30/18 19:16 Seg Neutrophils % 73.0 % (40.0-70.0) H 08/31/18 13:49 Seg Neuts % (Manual) 84.0 % (40.0-70.0) H 08/30/18 19:16 Band Neutrophils % 5.0 % 08/30/18 19:16 Lymphocytes % (Manual) 8.0 % (13.4-35.0) L 08/30/18 19:16 Reactive Lymphs % (Man) 0 % 08/30/18 19:16 Monocytes % (Manual) 2.0 % (0.0-7.3) 08/30/18 19:16 Eosinophils % (Manual) 0 % (0.0-4.3) 08/30/18 19:16 Basophils % (Manual) 1.0 % (0.0-1.8) 08/30/18 19:16 Metamyelocytes % 0 % 08/30/18 19:16 Myelocytes % 0 % 08/30/18 19:16 Promyelocytes % 0 % 08/30/18 19:16 Blast Cells % 0 % 08/30/18 19:16 Nucleated RBC % Not Reportable 08/30/18 19:16 Seg Neutrophils # 2.4 K/mm3 (1.8-7.7) 08/31/18 13:49 Seg Neutrophils # Man 3.7 K/mm3 (1.8-7.7) 08/30/18 19:16 Band Neutrophils # 0.2 K/mm3 08/30/18 19:16 Lymphocytes # (Manual) 0.4 K/mm3 (1.2-5.4) L 08/30/18 19:16 Abs React Lymphs (Man) 0.0 K/mm3 08/30/18 19:16 Monocytes # (Manual) 0.1 K/mm3 (0.0-0.8) 08/30/18 19:16 Eosinophils # (Manual) 0.0 K/mm3 (0.0-0.4) 08/30/18 19:16 Basophils # (Manual) 0.0 K/mm3 (0.0-0.1) 08/30/18 19:16 Metamyelocytes # 0.0 K/mm3 08/30/18 19:16 Myelocytes # 0.0 K/mm3 08/30/18 19:16 Promyelocytes # 0.0 K/mm3 08/30/18 19:16 Blast Cells # 0.0 K/mm3 08/30/18 19:16 WBC Morphology Not Reportable 08/30/18 19:16 Hypersegmented Neuts Not Reportable 08/30/18 19:16 Hyposegmented Neuts Not Reportable 08/30/18 19:16 Hypogranular Neuts Not Reportable 08/30/18 19:16 Smudge Cells Not Reportable 08/30/18 19:16 Toxic Granulation Not Reportable 08/30/18 19:16 Toxic Vacuolation Not Reportable 08/30/18 19:16 Dohle Bodies Not Reportable 08/30/18 19:16 Pelger-Huet Anomaly Not Reportable 08/30/18 19:16 Hugo Rods Not Reportable 08/30/18 19:16 Platelet Estimate Appears decreased 08/30/18 19:16 Clumped Platelets Not Reportable 08/30/18 19:16 Plt Clumps, EDTA Not Reportable 08/30/18 19:16 Large Platelets Not Reportable 08/30/18 19:16 Giant Platelets Not Reportable 08/30/18 19:16 Platelet Satelliting Not Reportable 08/30/18 19:16 Plt Morphology Comment Not Reportable 08/30/18 19:16 RBC Morphology Not Reportable 08/30/18 19:16 Dimorphic RBCs Not Reportable 08/30/18 19:16 Polychromasia Not Reportable 08/30/18 19:16 Hypochromasia 1+ 08/30/18 19:16 Poikilocytosis Not Reportable 08/30/18 19:16 Anisocytosis Not Reportable 08/30/18 19:16 Microcytosis Not Reportable 08/30/18 19:16 Macrocytosis Not Reportable 08/30/18 19:16 Spherocytes Not Reportable 08/30/18 19:16 Pappenheimer Bodies Not Reportable 08/30/18 19:16 Sickle Cells Not Reportable 08/30/18 19:16 Target Cells 1+ 08/30/18 19:16 Tear Drop Cells Not Reportable 08/30/18 19:16 Ovalocytes Not Reportable 08/30/18 19:16 Helmet Cells Not Reportable 08/30/18 19:16 [place] Bodies Not Reportable 08/30/18 19:16 [place] Rings Not Reportable 08/30/18 19:16 Esau Cells Not Reportable 08/30/18 19:16 Bite Cells Not Reportable 08/30/18 19:16 Crenated Cell Not Reportable 08/30/18 19:16 Elliptocytes Not Reportable 08/30/18 19:16 Acanthocytes (Spur) Not Reportable 08/30/18 19:16 Rouleaux Not Reportable 08/30/18 19:16 Hemoglobin C Crystals Not Reportable 08/30/18 19:16 Schistocytes Not Reportable 08/30/18 19:16 Malaria parasites Not Reportable 08/30/18 19:16 Carlos Eduardo Bodies Not Reportable 08/30/18 19:16 Hem Pathologist Commnt No 08/30/18 19:16 PT 16.3 Sec. (12.2-14.9) H 08/31/18 13:49 INR 1.27 (0.87-1.13) H 08/31/18 13:49 APTT 30.8 Sec. (24.2-36.6) 08/31/18 13:49 Sodium 137 mmol/L (137-145) 08/31/18 13:49 Potassium 3.2 mmol/L (3.6-5.0) L 08/31/18 13:49 Chloride 101.6 mmol/L (98-107) 08/31/18 13:49 Carbon Dioxide 24 mmol/L (22-30) 08/31/18 13:49 Anion Gap 15 mmol/L 08/31/18 13:49 BUN 5 mg/dL (9-20) L 08/31/18 13:49 Creatinine 0.5 mg/dL (0.8-1.5) L 08/31/18 13:49 Estimated GFR > 60 ml/min 08/31/18 13:49 BUN/Creatinine Ratio 10 % 08/31/18 13:49 Glucose 171 mg/dL (75-100) H 08/31/18 13:49 Lactic Acid 3.20 mmol/L (0.7-2.0) H* 09/01/18 06:53 Calcium 7.6 mg/dL (8.4-10.2) L 08/31/18 13:49 Magnesium 1.00 mg/dL (1.7-2.3) L 08/31/18 21:53 Total Bilirubin 1.60 mg/dL (0.1-1.2) H 08/30/18 19:16 AST 229 units/L (5-40) H 08/30/18 19:16 ALT 41 units/L (7-56) 08/30/18 19:16 Alkaline Phosphatase 157 units/L (35-129) H 08/30/18 19:16 Ammonia 86.0 umol/L (25-60) H 08/31/18 21:53 Total Creatine Kinase 118 units/L (55-170) 08/31/18 13:49 CK-MB (CK-2) 1.3 ng/mL (0.0-4.0) 08/31/18 13:49 CK-MB (CK-2) Rel Index 1.1 (0-4) 08/31/18 13:49 Troponin T < 0.010 ng/mL (0.00-0.029) 08/31/18 13:49 NT-Pro-B Natriuret Pep 126.1 pg/mL (0-900) 08/31/18 13:49 Total Protein 7.9 g/dL (6.3-8.2) 08/30/18 19:16 Albumin 2.9 g/dL (3.9-5) L 08/30/18 19:16 Albumin/Globulin Ratio 0.6 % 08/30/18 19:16 Amylase 183 units/L (27-131) H 08/31/18 21:53 Lipase 128 units/L (13-60) H 08/31/18 13:49 TSH 2.380 mlU/mL (0.270-4.200) 08/31/18 13:49 Free T4 1.14 ng/dL (0.76-1.46) 08/31/18 13:49 Urine Color [place] (Yellow) 08/30/18 21:16 Urine Turbidity Slightly-cloudy (Clear) 08/30/18 21:16 Urine pH 7.0 (5.0-7.0) 08/30/18 21:16 Ur Specific [place] 1.015 (1.003-1.030) 08/30/18 21:16 Urine Protein 30 mg/dl mg/dL (Negative) 08/30/18 21:16 Urine Glucose (UA) Neg mg/dL (Negative) 08/30/18 21:16 Urine Ketones Neg mg/dL (Negative) 08/30/18 21:16 Urine Blood Neg (Negative) 08/30/18 21:16 Urine Nitrite Neg (Negative) 08/30/18 21:16 Urine Bilirubin Sm (Negative) 08/30/18 21:16 Urine Ictotest Negative (Negative) 08/30/18 21:16 Urine Urobilinogen 4.0 mg/dL (<2.0) 08/30/18 21:16 Ur Leukocyte Esterase Neg (Negative) 08/30/18 21:16 Urine WBC (Auto) 7.0 /HPF (0.0-6.0) H 08/30/18 21:16 Urine RBC (Auto) 2.0 /HPF (0.0-6.0) 08/30/18 21:16 Hyaline Casts 3 /LPF 08/30/18 21:16 Urine Mucus Few /HPF 08/30/18 21:16 Urine Opiates Screen Presumptive negative 08/30/18 Unknown Urine Methadone Screen Presumptive negative 08/30/18 Unknown Ur Barbiturates Screen Presumptive negative 08/30/18 Unknown Ur Phencyclidine Scrn Presumptive negative 08/30/18 Unknown Ur Amphetamines Screen Presumptive positive 08/30/18 Unknown U Benzodiazepines Scrn Presumptive negative 08/30/18 Unknown Urine Cocaine Screen Presumptive negative 08/30/18 Unknown U Marijuana (THC) Screen Presumptive negative 08/30/18 Unknown Drugs of Abuse Note Disclamer 08/30/18 Unknown Plasma/Serum Alcohol < 0.01 % (0-0.07) 08/30/18 19:16 Hepatitis A IgM Ab Non-reactive (NonReactive) 08/31/18 13:49 Hep Bs Antigen Non-reactive (Negative) 08/31/18 13:49 Hep B Core IgM Ab Non-reactive (NonReactive) 08/31/18 13:49 Hepatitis C Antibody Non-reactive (NonReactive) 08/31/18 13:49
[2018-09-01] MEDS ORDERED: MAGNESIUM SULFATE 2GM/50ML 2 GM/50 ML BAG IV ONE (14:02)
[2018-09-01] MEDS: D5NS 1,000 ML with KCL 20 MEQ IV SCH (17:20)
[2018-09-02] MEDS: D5NS 1,000 ML with KCL 20 MEQ IV SCH (03:48)
[2018-09-02] MEDS: ATIVAN IV PRN ×2 (04:46→23:10)
[2018-09-02 05:52] LABS: Hematocrit 30.6 % (35.5-45.6); Hemoglobin 9.7 gm/dl (11.8-15.2); Mean Corpuscular HGB Conc 32 % (32-34); Mean Corpuscular Hemoglobin 29 pg (28-32); Mean Corpuscular Volume 90 fl (84-94); Red Blood Count 3.42 M/mm3 (3.65-5.03); Red Cell Distribution Width 15.9 % (13.2-15.2)
[2018-09-02 05:55] LABS: Platelet Count 66 K/mm3 (140-440)
[2018-09-02 06:15] LABS: Alanine Aminotransferase 33 units/L (7-56); Albumin 2.6 g/dL (3.9-5); BUN/Creatinine Ratio 8; Blood Urea Nitrogen 3 mg/dL (9-20); Calcium 7.5 mg/dL (8.4-10.2); Hemolysis Index 7
--- NOTE | 2018-09-02 08:39 | Ultrasound Report ---
ULTRASOUND ABDOMEN LIMITED INDICATION: Abdominal pain, cirrhosis. COMPARISON: None similar. FINDINGS: Right upper quadrant ultrasound demonstrates small perihepatic ascites with some fluid also noted pericholecystic towards the gallbladder fundus. Diffuse hepatic coarsening noted, mildly echogenic. No definite focal suspicious lesions or biliary dilatation, to the extent assessed. No definite gallstones or positive sonographic Schrader's sign. Gallbladder wall thickness is 2.3 mm. CBD caliber is 4.3 mm. Normal imaged pancreas, though tail partly obscured due to bowel gas. Normal imaged IVC. Nonaneurysmal abdominal aorta. Nonhydronephrotic 12.2 x 4 x 5.1 cm right kidney with cortical thickness of 1.1 cm. CONCLUSION: No acute right upper quadrant sonographic abnormality in this patient with hepatic coarsening and small ascites noted, as described. Please also correlate clinically. Thank you for the opportunity to participate in this patient's care.
--- NOTE | 2018-09-02 14:17 | Progress Note ---
Subjective - Reason for Consult Consult date: 09/02/18 Reason for consult: Psychiatric Follow-up Evaluation - Chief Complaint Chief complaint: "I'm pretty good" 57-year-old AA male with history of alcohol abuse presents to ED requesting alcohol detox. Today the patient is calm and cooperative during the assessment. Patient continues to have some confusion during the assessment. Patient responds inappropriately to questions. Appears somewhat guarded. He denies SI/HI's, A/VH's, and delusions. He reports fair appetite/sleep. Withdrawal symptoms- mild tremors noted. Mental Status Exam - Vital signs Last Vital Signs Temp 98.3 F 09/02/18 11:27 Pulse 95 H 09/02/18 11:27 Resp 18 09/02/18 11:27 BP 130/81 09/02/18 11:27 Pulse Ox 99 09/02/18 11:27 - Exam Narrative exam: Mental Status Exam Appearance: calm, cooperative Behavior: regular eye contact Speech: regular rate and tone Mood: "pretty good" Affect: congruent to mood Thought Process: circumstantial Thought Content: denies SI/HI's and AH's Motor Activity: lying in bed Cognition: A/O x2, with some confusion; needs redirection Insight: impaired Judgment: variable Assessment and Plan Impression: Alcohol Use DO. Delirium. Today the patient is calm and cooperative during the assessment. Mild tremors noted (etoh). DDx: R/O Mood DO Recommendation/Plan: Recommend CISC Protocol. Will assess the patient daily. Recommend Delirium precautions below: 1. Frequently reorient patient and involve him/her in their care (simple explanations of procedures, tests, medications). 2. Lights on and shades open during daytime hours. 3. Write date and goals of care in a visible place. 4. Try to avoid unnecessary interruptions to sleep during nighttime hours. 5. Obtain glasses, hearing aids from home if patient uses these at baseline. 6. Avoid medications that may exacerbate delirium (especially narcotics, benzodiazepines, barbiturates, ambien, lunesta, and medications with excessive anticholinergic properties). Disposition: Assist patient with possible Partial Hospitalization Program (PHP) placement to [facility] once medically clear. Will staff with Dr. Surjit Chavez.
--- NOTE | 2018-09-02 15:52 | Progress Note ---
Assessment and Plan Assessment and plan: Patient is 57 yo man with a history of etoh dependency, tobacco dependency, alcohol hepatitis and GERD who presents to [facility] ED for medical clearance to go to [place] detox program. 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 Palma Replace his magnesium and potassium. History Interval history: Patient was seen and examined. Follow-up on current diagnosis aMS, still present. Overnight uneventful. Patient denies any chest pain, shortness breath, nausea/vomiting or severe headaches. Imaging, nursing note, chart, labs and old chart reviewed. Discussed with patient and at bedside. Hospitalist Physical - Physical exam Narrative exam: Gen: cachetic, bmi 16, NAD, Awake, Alert, confused HEENT: NCAT, EOMI, PERRL, OP Clear Neck: supple, no adenopathy, no thyromegaly, no JVD CVS/Heart: Regualar tachy, normal S1S2, pulses present bilaterally Chest/Lungs: CTA B, Symmetrical chest expansion, good air entry bilaterally GI/Abdomen: soft, NTND, good bowel sounds, no guarding or rebound /Bladder: no suprapubic tenderness, no CVA or paraspinal tenderness Extermity/Skin: no c/c/e, no obvious rash MSK: FROM x 4 Neuro: CN 2-12 grossly intact, tremors, doesn't follow commands Psych: confused - Constitutional Vitals: Temp Pulse Resp BP Pulse Ox 98.3 F 95 H 18 130/81 99 09/02/18 11:27 09/02/18 11:27 09/02/18 11:27 09/02/18 11:27 09/02/18 11:27 General appearance: Present: no acute distress. Absent: well-nourished Results - Labs CBC & Chem 7: 09/02/18 05:26 09/02/18 05:26 Labs: Laboratory Last Values WBC 3.7 K/mm3 (4.5-11.0) L 09/02/18 05:26 RBC 3.42 M/mm3 (3.65-5.03) L 09/02/18 05:26 Hgb 9.7 gm/dl (11.8-15.2) L 09/02/18 05:26 Hct 30.6 % (35.5-45.6) L 09/02/18 05:26 MCV 90 fl (84-94) 09/02/18 05:26 MCH 29 pg (28-32) 09/02/18 05:26 MCHC 32 % (32-34) 09/02/18 05:26 RDW 15.9 % (13.2-15.2) H 09/02/18 05:26 Plt Count 66 K/mm3 (140-440) L 09/02/18 05:26 Lymph % (Auto) 17.4 % (13.4-35.0) 08/31/18 13:49 [place] % (Auto) 8.1 % (0.0-7.3) H 08/31/18 13:49 Eos % (Auto) 0.5 % (0.0-4.3) 08/31/18 13:49 Baso % (Auto) 1.0 % (0.0-1.8) 08/31/18 13:49 Lymph # 0.6 K/mm3 (1.2-5.4) L 08/31/18 13:49 [place] # 0.3 K/mm3 (0.0-0.8) 08/31/18 13:49 Eos # 0.0 K/mm3 (0.0-0.4) 08/31/18 13:49 Baso # 0.0 K/mm3 (0.0-0.1) 08/31/18 13:49 Add Manual Diff Complete 08/30/18 19:16 Total Counted 100 08/30/18 19:16 Seg Neutrophils % 73.0 % (40.0-70.0) H 08/31/18 13:49 Seg Neuts % (Manual) 84.0 % (40.0-70.0) H 08/30/18 19:16 Band Neutrophils % 5.0 % 12/23/18 19:16 Lymphocytes % (Manual) 8.0 % (13.4-35.0) L 08/30/18 19:16 Reactive Lymphs % (Man) 0 % 08/30/18 19:16 Monocytes % (Manual) 2.0 % (0.0-7.3) 08/30/18 19:16 Eosinophils % (Manual) 0 % (0.0-4.3) 08/30/18 19:16 Basophils % (Manual) 1.0 % (0.0-1.8) 08/30/18 19:16 Metamyelocytes % 0 % 08/30/18 19:16 Myelocytes % 0 % 08/30/18 19:16 Promyelocytes % 0 % 08/30/18 19:16 Blast Cells % 0 % 08/30/18 19:16 Nucleated RBC % Not Reportable 08/30/18 19:16 Seg Neutrophils # 2.4 K/mm3 (1.8-7.7) 08/31/18 13:49 Seg Neutrophils # Man 3.7 K/mm3 (1.8-7.7) 08/30/18 19:16 Band Neutrophils # 0.2 K/mm3 08/30/18 19:16 Lymphocytes # (Manual) 0.4 K/mm3 (1.2-5.4) L 08/30/18 19:16 Abs React Lymphs (Man) 0.0 K/mm3 08/30/18 19:16 Monocytes # (Manual) 0.1 K/mm3 (0.0-0.8) 08/30/18 19:16 Eosinophils # (Manual) 0.0 K/mm3 (0.0-0.4) 08/30/18 19:16 Basophils # (Manual) 0.0 K/mm3 (0.0-0.1) 08/30/18 19:16 Metamyelocytes # 0.0 K/mm3 08/30/18 19:16 Myelocytes # 0.0 K/mm3 08/30/18 19:16 Promyelocytes # 0.0 K/mm3 08/30/18 19:16 Blast Cells # 0.0 K/mm3 08/30/18 19:16 WBC Morphology Not Reportable 08/30/18 19:16 Hypersegmented Neuts Not Reportable 08/30/18 19:16 Hyposegmented Neuts Not Reportable 08/30/18 19:16 Hypogranular Neuts Not Reportable 08/30/18 19:16 Smudge Cells Not Reportable 08/30/18 19:16 Toxic Granulation Not Reportable 08/30/18 19:16 Toxic Vacuolation Not Reportable 08/30/18 19:16 Dohle Bodies Not Reportable 08/30/18 19:16 Pelger-Huet Anomaly Not Reportable 08/30/18 19:16 Hugo Rods Not Reportable 08/30/18 19:16 Platelet Estimate Appears decreased 08/30/18 19:16 Clumped Platelets Not Reportable 08/30/18 19:16 Plt Clumps, EDTA Not Reportable 08/30/18 19:16 Large Platelets Not Reportable 08/30/18 19:16 Giant Platelets Not Reportable 08/30/18 19:16 Platelet Satelliting Not Reportable 08/30/18 19:16 Plt Morphology Comment Not Reportable 08/30/18 19:16 RBC Morphology Not Reportable 08/30/18 19:16 Dimorphic RBCs Not Reportable 08/30/18 19:16 Polychromasia Not Reportable 08/30/18 19:16 Hypochromasia 1+ 08/30/18 19:16 Poikilocytosis Not Reportable 08/30/18 19:16 Anisocytosis Not Reportable 08/30/18 19:16 Microcytosis Not Reportable 08/30/18 19:16 Macrocytosis Not Reportable 08/30/18 19:16 Spherocytes Not Reportable 08/30/18 19:16 Pappenheimer Bodies Not Reportable 08/30/18 19:16 Sickle Cells Not Reportable 08/30/18 19:16 Target Cells 1+ 08/30/18 19:16 Tear Drop Cells Not Reportable 08/30/18 19:16 Ovalocytes Not Reportable 08/30/18 19:16 Helmet Cells Not Reportable 08/30/18 19:16 [place] Bodies Not Reportable 08/30/18 19:16 [place] Rings Not Reportable 08/30/18 19:16 Esau Cells Not Reportable 08/30/18 19:16 Bite Cells Not Reportable 08/30/18 19:16 Crenated Cell Not Reportable 08/30/18 19:16 Elliptocytes Not Reportable 08/30/18 19:16 Acanthocytes (Spur) Not Reportable 08/30/18 19:16 Rouleaux Not Reportable 08/30/18 19:16 Hemoglobin C Crystals Not Reportable 08/30/18 19:16 Schistocytes Not Reportable 08/30/18 19:16 Malaria parasites Not Reportable 08/30/18 19:16 Carlos Eduardo Bodies Not Reportable 08/30/18 19:16 Hem Pathologist Commnt No 08/30/18 19:16 PT 16.3 Sec. (12.2-14.9) H 08/31/18 13:49 INR 1.27 (0.87-1.13) H 08/31/18 13:49 APTT 30.8 Sec. (24.2-36.6) 08/31/18 13:49 Sodium 138 mmol/L (137-145) 09/02/18 05:26 Potassium 3.5 mmol/L (3.6-5.0) L 09/02/18 05:26 Chloride 102.0 mmol/L (98-107) 09/02/18 05:26 Carbon Dioxide 24 mmol/L (22-30) 09/02/18 05:26 Anion Gap 16 mmol/L 09/02/18 05:26 BUN 3 mg/dL (9-20) L 09/02/18 05:26 Creatinine 0.4 mg/dL (0.8-1.5) L 09/02/18 05:26 Estimated GFR > 60 ml/min 09/02/18 05:26 BUN/Creatinine Ratio 8 % 09/02/18 05:26 Glucose 104 mg/dL (75-100) H 09/02/18 05:26 Lactic Acid 3.20 mmol/L (0.7-2.0) H* 09/01/18 06:53 Calcium 7.5 mg/dL (8.4-10.2) L 09/02/18 05:26 Magnesium 1.20 mg/dL (1.7-2.3) L 09/02/18 05:26 Total Bilirubin 1.30 mg/dL (0.1-1.2) H 09/02/18 05:26 AST 140 units/L (5-40) H 09/02/18 05:26 ALT 33 units/L (7-56) 09/02/18 05:26 Alkaline Phosphatase 144 units/L (35-129) H 09/02/18 05:26 Ammonia 86.0 umol/L (25-60) H 08/31/18 21:53 Total Creatine Kinase 118 units/L (55-170) 08/31/18 13:49 CK-MB (CK-2) 1.3 ng/mL (0.0-4.0) 08/31/18 13:49 CK-MB (CK-2) Rel Index 1.1 (0-4) 08/31/18 13:49 Troponin T < 0.010 ng/mL (0.00-0.029) 08/31/18 13:49 NT-Pro-B Natriuret Pep 126.1 pg/mL (0-900) 08/31/18 13:49 Total Protein 7.0 g/dL (6.3-8.2) 09/02/18 05:26 Albumin 2.6 g/dL (3.9-5) L 09/02/18 05:26 Albumin/Globulin Ratio 0.6 % 09/02/18 05:26 Amylase 183 units/L (27-131) H 08/31/18 21:53 Lipase 128 units/L (13-60) H 08/31/18 13:49 TSH 2.380 mlU/mL (0.270-4.200) 08/31/18 13:49 Free T4 1.14 ng/dL (0.76-1.46) 08/31/18 13:49 Urine Color [place] (Yellow) 08/30/18 21:16 Urine Turbidity Slightly-cloudy (Clear) 08/30/18 21:16 Urine pH 7.0 (5.0-7.0) 08/30/18 21:16 Ur Specific [place] 1.015 (1.003-1.030) 08/30/18 21:16 Urine Protein 30 mg/dl mg/dL (Negative) 08/30/18 21:16 Urine Glucose (UA) Neg mg/dL (Negative) 08/30/18 21:16 Urine Ketones Neg mg/dL (Negative) 08/30/18 21:16 Urine Blood Neg (Negative) 08/30/18 21:16 Urine Nitrite Neg (Negative) 08/30/18 21:16 Urine Bilirubin Sm (Negative) 08/30/18 21:16 Urine Ictotest Negative (Negative) 08/30/18 21:16 Urine Urobilinogen 4.0 mg/dL (<2.0) 08/30/18 21:16 Ur Leukocyte Esterase Neg (Negative) 08/30/18 21:16 Urine WBC (Auto) 7.0 /HPF (0.0-6.0) H 08/30/18 21:16 Urine RBC (Auto) 2.0 /HPF (0.0-6.0) 08/30/18 21:16 Hyaline Casts 3 /LPF 08/30/18 21:16 Urine Mucus Few /HPF 08/30/18 21:16 Urine Opiates Screen Presumptive negative 08/30/18 Unknown Urine Methadone Screen Presumptive negative 08/30/18 Unknown Ur Barbiturates Screen Presumptive negative 08/30/18 Unknown Ur Phencyclidine Scrn Presumptive negative 08/30/18 Unknown Ur Amphetamines Screen Presumptive positive 08/30/18 Unknown U Benzodiazepines Scrn Presumptive negative 08/30/18 Unknown Urine Cocaine Screen Presumptive negative 08/30/18 Unknown U Marijuana (THC) Screen Presumptive negative 08/30/18 Unknown Drugs of Abuse Note Disclamer 08/30/18 Unknown Plasma/Serum Alcohol < 0.01 % (0-0.07) 08/30/18 19:16 Hepatitis A IgM Ab Non-reactive (NonReactive) 08/31/18 13:49 Hep Bs Antigen Non-reactive (Negative) 08/31/18 13:49 Hep B Core IgM Ab Non-reactive (NonReactive) 08/31/18 13:49 Hepatitis C Antibody Non-reactive (NonReactive) 08/31/18 13:49 Nutrition/Malnutrition Assess - Dietary Evaluation Nutrition/Malnutrition Findings: Nutrition Notes Start: 09/02/18 15:17 Freq: Status: Active Protocol: Document 09/02/18 15:17 RM (Rec: 09/02/18 15:23 RM [id number]) Nutrition Notes Need for Assessment generated from: MD Order Initial or Follow up Assessment Other Pertinent Diagnosis Hx hepatitis, GERD, EOTH dependence, Acute toxic metabolic encephaliopathy Current Diet Regular Labs/Tests Reviewed Medications Reviewed Height 6 ft Weight 54.7 kg [place] Body Weight (lbs) 178.0 BMI 16.3 Subjective/Other Information Consulted for malnutrition. Pt asleep at time of visit. Noted breakfast at bedside with 1/3 eaten. Burn Absent Trauma Absent #1 Nutrition Diagnoses Predicted suboptimal energy intake Etiology ETOH dependence, metabolic encephalopathy As Evidenced by Signs and Symptoms pt BMI of 16.4, breakfast at bedside with 1/3 eaten Is patient on ventilator? No Is Patient Ambulatory and/or Out of Bed No REE-([facility]-confined to bed) 5238.924 Calculation Used for Recommendations Kcal/kg Additional Notes Protein Needs: 66-82g (1.2-1. 5g/kg) Fluid Needs: 1 ml/kcal Nutrition Intervention Change Diet Order: Continue current Add Supplement/Snack (indicate name/kcal Ensure Enlive 1 daily /protein ) Provides kCal: 350 Provides Protein (gm) 20 Goal #1 Meet at least 75% of calorie and protein needs via PO and ONS intakes Follow-Up By: 09/04/18 Additional Comments Follow for PO and ONS intakes
[2018-09-02] MEDS ORDERED: MAGNESIUM SULFATE 2GM/50ML 2 GM/50 ML BAG IV ONE (16:50)
[2018-09-02] MEDS: HABITROL TD SCH (18:23)
[2018-09-02] MEDS: D5W/NS W/KCL 20MEQ 20 MEQ/1,000 ML BAG IV SCH (18:24)
[2018-09-02] MEDS: KCL 10MEQ/100ML 10 MEQ/100 ML BAG IV SCH ×2 (20:49→23:30)
--- NOTE | 2018-09-03 01:10 | Consultation ---
REFERRING PHYSICIAN: Jose Miguel Burks MD INDICATIONS: 1. Increased liver function tests. 2. Alcoholic liver disease. HISTORY OF PRESENT ILLNESS: The patient is a 57-year-old black male who has been seen by GI for increased liver function test. The patient reportedly has a chronic history of alcohol abuse for over 30 years. The patient also has a history of hepatitis and GERD. The patient has come in as a referral prior to going to ____ for medical clearance and to ensure the patient is medically optimized. The patient reports his last drink was 4-5 days ago. He reports he drinks a pint of alcohol per day for years. The patient at this time reports some mild weakness, but denies any other specific GI complaints. Reports no nausea, vomiting, heartburn, reflux ingestion. Denies any lower GI symptoms including diarrhea, constipation or rectal bleeding. The patient reports with his last full blood work and evaluation was 8-10 months ago where he was told he had fatty liver, but does not recall being told he had cirrhosis or significant liver disease. He denies any other specific GI problems or complaints at this time. PAST MEDICAL HISTORY: GERD. PAST SURGICAL HISTORY: Negative. ALLERGIES: No known drug allergies. SOCIAL HISTORY: Positive for alcohol abuse. Positive smoker. MEDICATIONS: Reviewed in chart and updated. FAMILY HISTORY: Negative for colon cancer, IBD, or liver disease. REVIEW OF SYSTEMS: GENERAL: Reports mild weakness. HEENT: No visual complaints or tinnitus. PULMONARY: No shortness of breath. No cough. No chest pain. GASTROINTESTINAL: Reports mild occasional abdominal pain. All points of 13-point review of systems otherwise negative. PHYSICAL EXAMINATION: VITAL SIGNS: Temperature of 98.3, pulse 95, respiration 18, blood pressure 130/80. GENERAL: Fairly nourished male in no acute distress. HEENT: Pupils equal, round and reactive. PULMONARY: Clear to auscultation bilaterally. CARDIOVASCULAR: Regular rhythm. Normal S1, S2. ABDOMEN: About bowel sounds, soft. SKIN: No obvious rashes. LABORATORY DATA: Pertinent for white count 3.7, hemoglobin and hematocrit of 9.7 and 30.6, platelet count of 66. Chem-7 within normal limits. AST, ALT of 140 and 33 with a total bilirubin of 1.3. RADIOLOGICAL DATA: Ultrasound showed coarse-appearing liver, otherwise no other significant obvious pathology. ASSESSMENT AND PLAN: The patient is a 57-year-old black male who is now admitted prior to going for alcohol rehabilitation, noted to have increased liver function tests. The patient's labs are significant for noted low platelet count and a low albumin. It should be noted an INR of 1.27. His liver appears coarse on ultrasound. 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 The patient's labs although show no signs of acute alcohol hepatitis, which will require steroids or other treatment at this time. At this time, conservative management. 1. I agree with hepatitis serologies as ordered. 2. Alcohol cessation and damages it has done to his liver Discussed with patient at length along with his daughter who was at bedside during this consultation. No plans for liver biopsy or intervention. The patient will require an EGD later for variceal screening, but we will hold at this time. 3. See what other alcohol-related issues per primary team. 4. We will follow for now. JOB# [id number] CAB/NTS
[2018-09-03 06:11] LABS: Hematocrit 28.4 % (35.5-45.6); Hemoglobin 9.2 gm/dl (11.8-15.2); Mean Corpuscular HGB Conc 32 % (32-34); Mean Corpuscular Hemoglobin 29 pg (28-32); Mean Corpuscular Volume 90 fl (84-94); Red Blood Count 3.17 M/mm3 (3.65-5.03); Red Cell Distribution Width 15.9 % (13.2-15.2)
[2018-09-03 06:15] LABS: Platelet Count 77 K/mm3 (140-440)
[2018-09-03 06:28] LABS: BUN/Creatinine Ratio 10; Blood Urea Nitrogen 4 mg/dL (9-20); Calcium 7.5 mg/dL (8.4-10.2); Hemolysis Index 3
--- NOTE | 2018-09-03 09:53 | Progress Note ---
Subjective - Reason for Consult Consult date: 09/03/18 Reason for consult: Psychiatry Follow-up - Chief Complaint Chief complaint: "I'm well" 57-year-old AA male with history of alcohol abuse presents to ED requesting alcohol detox. Today the patient is calm and cooperative during the assessment. He is more lucid today during the interview. He was asked about doing rehab services when discharged, he stated, "I plan on it." He denies SI/HI's and AVH's. Mental Status Exam - Vital signs Last Vital Signs Temp 98.2 F 09/03/18 05:38 Pulse 103 H 09/03/18 05:38 Resp 24 09/03/18 05:38 BP 125/78 09/03/18 05:38 Pulse Ox 96 09/03/18 05:38 - Exam Narrative exam: MSE: Appearance: calm, cooperative Behavior: regular eye contact Speech: regular rate and tone Mood: "okay" Affect: congruent to mood Thought Process: circumstantial Thought Content: denies SI/HI's and AH's Motor Activity: lying in bed Cognition: A/O x 3 Insight: fair Judgment: fair Assessment and Plan Impression: Alcohol Use DO. Delirium. Today the patient is calm and cooperative during the assessment. Mild tremors noted (etoh). The patient is tachycardic. Mild tremors noted (etoh). DDx: R/O Mood DO Recommendation/Plan: Recommend CIWA Protocol. Will assess the patient daily. Recommend Delirium precautions below: 1. Frequently reorient patient and involve him/her in their care (simple explanations of procedures, tests, medications). 2. Lights on and shades open during daytime hours. 3. Write date and goals of care in a visible place. 4. Try to avoid unnecessary interruptions to sleep during nighttime hours. 5. Obtain glasses, hearing aids from home if patient uses these at baseline. 6. Avoid medications that may exacerbate delirium (especially narcotics, benzodiazepines, barbiturates, ambien, lunesta, and medications with excessive anticholinergic properties). Dispo: Assist patient with possible Partial Hospitalization Program (PHP) placement to [facility] once medically clear. Staffed with Dr Castaneda.
[2018-09-03] MEDS: HABITROL TD SCH (10:00)
[2018-09-03] MEDS: D5W/NS W/KCL 20MEQ 20 MEQ/1,000 ML BAG IV SCH (10:11)
[2018-09-03] MEDS ORDERED: MAGNESIUM SULFATE 2GM/50ML 2 GM/50 ML BAG IV ONE (14:25)
--- NOTE | 2018-09-03 14:36 | Progress Note ---
Assessment and Plan Assessment and plan: Patient is 57 yo man with a history of etoh dependency, tobacco dependency, alcohol hepatitis and GERD who presents to [facility] ED for medical clearance to go to [facility] detox program. -Alcohol dependency with withdrawal: treat with CIWA protocol -Acute toxic metabolic encephalopathy: resolved -Tobacco dependency: counseling done -Severe malnutrition: consulted Campus Receptionist -Alcohol liver disease with transaminitis, Cytopenias: ruq u /s reviewed, consulted GI -Lactic acidosis with dehydration: treat with ivf -SIRS with organ dysfunction, poa -Hyokalemia; replace and recheck -Hypomagnesemia: replace and recheck -DVT/GI prophylaxis reviewed I called [phone] and gave update to their physician, spoke with Dr. Palma Replace his magnesium still shaky, will check gait, if he can ambulate then discharge to [facility]. Anticipate d/c tomorrow d/c restraints. History Interval history: Patient was seen and examined. Follow-up on current diagnosis AMS, resolved. Overnight uneventful. Patient denies any chest pain, shortness breath, nausea/vomiting or severe headaches. Imaging, nursing note, chart, labs and old chart reviewed. Discussed with patient and at bedside. Hospitalist Physical - Physical exam Narrative exam: Gen: cachetic, bmi 16, NAD, Awake, Alert, orientated x 3 HEENT: NCAT, EOMI, PERRL, OP Clear Neck: supple, no adenopathy, no thyromegaly, no JVD CVS/Heart: Regualar tachy, normal S1S2, pulses present bilaterally Chest/Lungs: CTA B, Symmetrical chest expansion, good air entry bilaterally GI/Abdomen: soft, NTND, good bowel sounds, no guarding or rebound /Bladder: no suprapubic tenderness, no CVA or paraspinal tenderness Extermity/Skin: no c/c/e, no obvious rash MSK: FROM x 4 Neuro: CN 2-12 grossly intact, tremors, following all commands Psych: calm - Constitutional Vitals: Temp Pulse Resp BP Pulse Ox 99.5 F 107 H 18 116/70 96 09/03/18 11:30 09/03/18 11:30 09/03/18 11:30 09/03/18 11:30 09/03/18 11:30 General appearance: Present: no acute distress. Absent: well-nourished Results - Labs CBC & Chem 7: 09/03/18 05:42 09/03/18 05:42 Labs: Laboratory Last Values WBC 4.0 K/mm3 (4.5-11.0) L 09/03/18 05:42 RBC 3.17 M/mm3 (3.65-5.03) L 09/03/18 05:42 Hgb 9.2 gm/dl (11.8-15.2) L 09/03/18 05:42 Hct 28.4 % (35.5-45.6) L 09/03/18 05:42 MCV 90 fl (84-94) 09/03/18 05:42 MCH 29 pg (28-32) 09/03/18 05:42 MCHC 32 % (32-34) 09/03/18 05:42 RDW 15.9 % (13.2-15.2) H 09/03/18 05:42 Plt Count 77 K/mm3 (140-440) L 09/03/18 05:42 Lymph % (Auto) 17.4 % (13.4-35.0) 08/31/18 13:49 Campbell % (Auto) 8.1 % (0.0-7.3) H 08/31/18 13:49 Eos % (Auto) 0.5 % (0.0-4.3) 08/31/18 13:49 Baso % (Auto) 1.0 % (0.0-1.8) 08/31/18 13:49 Lymph # 0.6 K/mm3 (1.2-5.4) L 08/31/18 13:49 Campbell # 0.3 K/mm3 (0.0-0.8) 08/31/18 13:49 Eos # 0.0 K/mm3 (0.0-0.4) 08/31/18 13:49 Baso # 0.0 K/mm3 (0.0-0.1) 08/31/18 13:49 Add Manual Diff Complete 08/30/18 19:16 Total Counted 100 08/30/18 19:16 Seg Neutrophils % 73.0 % (40.0-70.0) H 08/31/18 13:49 Seg Neuts % (Manual) 84.0 % (40.0-70.0) H 08/30/18 19:16 Band Neutrophils % 5.0 % 08/30/18 19:16 Lymphocytes % (Manual) 8.0 % (13.4-35.0) L 08/30/18 19:16 Reactive Lymphs % (Man) 0 % 08/30/18 19:16 Monocytes % (Manual) 2.0 % (0.0-7.3) 08/30/18 19:16 Eosinophils % (Manual) 0 % (0.0-4.3) 08/30/18 19:16 Basophils % (Manual) 1.0 % (0.0-1.8) 08/30/18 19:16 Metamyelocytes % 0 % 08/30/18 19:16 Myelocytes % 0 % 08/30/18 19:16 Promyelocytes % 0 % 08/30/18 19:16 Blast Cells % 0 % 08/30/18 19:16 Nucleated RBC % Not Reportable 08/30/18 19:16 Seg Neutrophils # 2.4 K/mm3 (1.8-7.7) 08/31/18 13:49 Seg Neutrophils # Man 3.7 K/mm3 (1.8-7.7) 08/30/18 19:16 Band Neutrophils # 0.2 K/mm3 08/30/18 19:16 Lymphocytes # (Manual) 0.4 K/mm3 (1.2-5.4) L 08/30/18 19:16 Abs React Lymphs (Man) 0.0 K/mm3 08/30/18 19:16 Monocytes # (Manual) 0.1 K/mm3 (0.0-0.8) 08/30/18 19:16 Eosinophils # (Manual) 0.0 K/mm3 (0.0-0.4) 08/30/18 19:16 Basophils # (Manual) 0.0 K/mm3 (0.0-0.1) 08/30/18 19:16 Metamyelocytes # 0.0 K/mm3 08/30/18 19:16 Myelocytes # 0.0 K/mm3 08/30/18 19:16 Promyelocytes # 0.0 K/mm3 08/30/18 19:16 Blast Cells # 0.0 K/mm3 08/30/18 19:16 WBC Morphology Not Reportable 08/30/18 19:16 Hypersegmented Neuts Not Reportable 08/30/18 19:16 Hyposegmented Neuts Not Reportable 08/30/18 19:16 Hypogranular Neuts Not Reportable 08/30/18 19:16 Smudge Cells Not Reportable 08/30/18 19:16 Toxic Granulation Not Reportable 08/30/18 19:16 Toxic Vacuolation Not Reportable 08/30/18 19:16 Dohle Bodies Not Reportable 08/30/18 19:16 Pelger-Huet Anomaly Not Reportable 08/30/18 19:16 Hugo Rods Not Reportable 08/30/18 19:16 Platelet Estimate Appears decreased 08/30/18 19:16 Clumped Platelets Not Reportable 08/30/18 19:16 Plt Clumps, EDTA Not Reportable 08/30/18 19:16 Large Platelets Not Reportable 08/30/18 19:16 Giant Platelets Not Reportable 08/30/18 19:16 Platelet Satelliting Not Reportable 08/30/18 19:16 Plt Morphology Comment Not Reportable 08/30/18 19:16 RBC Morphology Not Reportable 08/30/18 19:16 Dimorphic RBCs Not Reportable 08/30/18 19:16 Polychromasia Not Reportable 08/30/18 19:16 Hypochromasia 1+ 08/30/18 19:16 Poikilocytosis Not Reportable 08/30/18 19:16 Anisocytosis Not Reportable 08/30/18 19:16 Microcytosis Not Reportable 08/30/18 19:16 Macrocytosis Not Reportable 08/30/18 19:16 Spherocytes Not Reportable 08/30/18 19:16 Pappenheimer Bodies Not Reportable 08/30/18 19:16 Sickle Cells Not Reportable 08/30/18 19:16 Target Cells 1+ 08/30/18 19:16 Tear Drop Cells Not Reportable 08/30/18 19:16 Ovalocytes Not Reportable 08/30/18 19:16 Helmet Cells Not Reportable 08/30/18 19:16 Lott-Essex Bodies Not Reportable 08/30/18 19:16 [place] Rings Not Reportable 08/30/18 19:16 Esau Cells Not Reportable 08/30/18 19:16 Bite Cells Not Reportable 08/30/18 19:16 Crenated Cell Not Reportable 08/30/18 19:16 Elliptocytes Not Reportable 08/30/18 19:16 Acanthocytes (Spur) Not Reportable 08/30/18 19:16 Rouleaux Not Reportable 08/30/18 19:16 Hemoglobin C Crystals Not Reportable 08/30/18 19:16 Schistocytes Not Reportable 08/30/18 19:16 Malaria parasites Not Reportable 08/30/18 19:16 Carlos Eduardo Bodies Not Reportable 08/30/18 19:16 Hem Pathologist Commnt No 08/30/18 19:16 PT 16.3 Sec. (12.2-14.9) H 08/31/18 13:49 INR 1.27 (0.87-1.13) H 08/31/18 13:49 APTT 30.8 Sec. (24.2-36.6) 08/31/18 13:49 Sodium 137 mmol/L (137-145) 09/03/18 05:42 Potassium 3.9 mmol/L (3.6-5.0) 09/03/18 05:42 Chloride 104.0 mmol/L (98-107) 09/03/18 05:42 Carbon Dioxide 23 mmol/L (22-30) 09/03/18 05:42 Anion Gap 14 mmol/L 09/03/18 05:42 BUN 4 mg/dL (9-20) L 09/03/18 05:42 Creatinine 0.4 mg/dL (0.8-1.5) L 09/03/18 05:42 Estimated GFR > 60 ml/min 09/03/18 05:42 BUN/Creatinine Ratio 10 % 09/03/18 05:42 Glucose 106 mg/dL (75-100) H 09/03/18 05:42 Lactic Acid 3.20 mmol/L (0.7-2.0) H* 09/01/18 06:53 Calcium 7.5 mg/dL (8.4-10.2) L 09/03/18 05:42 Magnesium 1.40 mg/dL (1.7-2.3) L 09/03/18 05:42 Total Bilirubin 1.30 mg/dL (0.1-1.2) H 09/02/18 05:26 AST 140 units/L (5-40) H 09/02/18 05:26 ALT 33 units/L (7-56) 09/02/18 05:26 Alkaline Phosphatase 144 units/L (35-129) H 09/02/18 05:26 Ammonia 86.0 umol/L (25-60) H 08/31/18 21:53 Total Creatine Kinase 118 units/L (55-170) 08/31/18 13:49 CK-MB (CK-2) 1.3 ng/mL (0.0-4.0) 08/31/18 13:49 CK-MB (CK-2) Rel Index 1.1 (0-4) 08/31/18 13:49 Troponin T < 0.010 ng/mL (0.00-0.029) 08/31/18 13:49 NT-Pro-B Natriuret Pep 126.1 pg/mL (0-900) 08/31/18 13:49 Total Protein 7.0 g/dL (6.3-8.2) 09/02/18 05:26 Albumin 2.6 g/dL (3.9-5) L 09/02/18 05:26 Albumin/Globulin Ratio 0.6 % 09/02/18 05:26 Amylase 183 units/L (27-131) H 08/31/18 21:53 Lipase 128 units/L (13-60) H 08/31/18 13:49 TSH 2.380 mlU/mL (0.270-4.200) 08/31/18 13:49 Free T4 1.14 ng/dL (0.76-1.46) 08/31/18 13:49 Urine Color [place] (Yellow) 08/30/18 21:16 Urine Turbidity Slightly-cloudy (Clear) 08/30/18 21:16 Urine pH 7.0 (5.0-7.0) 08/30/18 21:16 Ur Specific [place] 1.015 (1.003-1.030) 08/30/18 21:16 Urine Protein 30 mg/dl mg/dL (Negative) 08/30/18 21:16 Urine Glucose (UA) Neg mg/dL (Negative) 08/30/18 21:16 Urine Ketones Neg mg/dL (Negative) 08/30/18 21:16 Urine Blood Neg (Negative) 08/30/18 21:16 Urine Nitrite Neg (Negative) 08/30/18 21:16 Urine Bilirubin Sm (Negative) 08/30/18 21:16 Urine Ictotest Negative (Negative) 08/30/18 21:16 Urine Urobilinogen 4.0 mg/dL (<2.0) 08/30/18 21:16 Ur Leukocyte Esterase Neg (Negative) 08/30/18 21:16 Urine WBC (Auto) 7.0 /HPF (0.0-6.0) H 08/30/18 21:16 Urine RBC (Auto) 2.0 /HPF (0.0-6.0) 08/30/18 21:16 Hyaline Casts 3 /LPF 08/30/18 21:16 Urine Mucus Few /HPF 08/30/18 21:16 Urine Opiates Screen Presumptive negative 08/30/18 Unknown Urine Methadone Screen Presumptive negative 08/30/18 Unknown Ur Barbiturates Screen Presumptive negative 08/30/18 Unknown Ur Phencyclidine Scrn Presumptive negative 08/30/18 Unknown Ur Amphetamines Screen Presumptive positive 08/30/18 Unknown U Benzodiazepines Scrn Presumptive negative 08/30/18 Unknown Urine Cocaine Screen Presumptive negative 08/30/18 Unknown U Marijuana (THC) Screen Presumptive negative 08/30/18 Unknown Drugs of Abuse Note Disclamer 08/30/18 Unknown Plasma/Serum Alcohol < 0.01 % (0-0.07) 08/30/18 19:16 Hepatitis A IgM Ab Non-reactive (NonReactive) 08/31/18 13:49 Hep Bs Antigen Non-reactive (Negative) 08/31/18 13:49 Hep B Core IgM Ab Non-reactive (NonReactive) 08/31/18 13:49 Hepatitis C Antibody Non-reactive (NonReactive) 08/31/18 13:49 Nutrition/Malnutrition Assess - Dietary Evaluation Nutrition/Malnutrition Findings: Nutrition Notes Start: 09/02/18 15:17 Freq: Status: Active Protocol: Document 09/02/18 15:17 RM (Rec: 09/02/18 15:23 RM [id number]) Nutrition Notes Need for Assessment generated from: MD Order Initial or Follow up Assessment Other Pertinent Diagnosis Hx hepatitis, GERD, EOTH dependence, Acute toxic metabolic encephaliopathy Current Diet Regular Labs/Tests Reviewed Medications Reviewed Height 6 ft Weight 54.7 kg [place] Body Weight (lbs) 178.0 BMI 16.3 Subjective/Other Information Consulted for malnutrition. Pt asleep at time of visit. Noted breakfast at bedside with 1/3 eaten. Burn Absent Trauma Absent #1 Nutrition Diagnoses Predicted suboptimal energy intake Etiology ETOH dependence, metabolic encephalopathy As Evidenced by Signs and Symptoms pt BMI of 16.4, breakfast at bedside with 1/3 eaten Is patient on ventilator? No Is Patient Ambulatory and/or Out of Bed No REE-([facility]-confined to bed) 9060.203 Calculation Used for Recommendations Kcal/kg Additional Notes Protein Needs: 66-82g (1.2-1. 5g/kg) Fluid Needs: 1 ml/kcal Nutrition Intervention Change Diet Order: Continue current Add Supplement/Snack (indicate name/kcal Ensure Enlive 1 daily /protein ) Provides kCal: 350 Provides Protein (gm) 20 Goal #1 Meet at least 75% of calorie and protein needs via PO and ONS intakes Follow-Up By: 09/04/18 Additional Comments Follow for PO and ONS intakes
--- NOTE | 2018-09-03 15:54 | Gastroenterology Progress Note ---
Assessment and Plan GI: pt w/ h/o etoh abuse now with increase LFT's - labs in etoh related pattern - concern for cirrhosis given low albumin, platelets and increase INR - will need EGD for variceal screening in future - pt w/o labs and findings for acute etoh hepatitis - conservative management with follow up outpt - ETOH withdrawal per primary team - will sign off, call if needed Subjective Date of service: 09/03/18 Interval history: - reports some shakiness, denies other specific GI complaints Objective - Constitutional Vitals: Temp Pulse Resp BP Pulse Ox 99.5 F 107 H 18 116/70 96 09/03/18 11:30 09/03/18 11:30 09/03/18 11:30 09/03/18 11:30 09/03/18 11:30 General appearance: no acute distress - EENT Eyes: PERRL - Respiratory Respiratory: bilateral: CTA - Cardiovascular Rhythm: regular Heart Sounds: Present: S1 & S2 - Gastrointestinal General gastrointestinal: Present: soft, non-tender, non-distended - Labs CBC & Chem 7: 09/03/18 05:42 09/03/18 05:42 Labs: Laboratory Results - last 24 hr 09/03/18 09/03/18 05:42 05:42 WBC 4.0 L RBC 3.17 L Hgb 9.2 L Hct 28.4 L MCV 90 MCH 29 MCHC 32 RDW 15.9 H Plt Count 77 L Sodium 137 Potassium 3.9 Chloride 104.0 Carbon Dioxide 23 Anion Gap 14 BUN 4 L Creatinine 0.4 L Estimated GFR > 60 BUN/Creatinine Ratio 10 Glucose 106 H Calcium 7.5 L Magnesium 1.40 L
[2018-09-04 05:16] LABS: Hematocrit 30.7 % (35.5-45.6); Hemoglobin 9.8 gm/dl (11.8-15.2); Mean Corpuscular HGB Conc 32 % (32-34); Mean Corpuscular Hemoglobin 29 pg (28-32); Mean Corpuscular Volume 90 fl (84-94); Red Cell Distribution Width 16.3 % (13.2-15.2)
[2018-09-04 05:20] LABS: Platelet Count 94 K/mm3 (140-440)
[2018-09-04 05:36] LABS: BUN/Creatinine Ratio 6; Blood Urea Nitrogen 3 mg/dL (9-20); Calcium 7.9 mg/dL (8.4-10.2); Hemolysis Index 7
[2018-09-04] MEDS: D5W/NS W/KCL 20MEQ 20 MEQ/1,000 ML BAG IV SCH ×2 (07:43→17:03)
[2018-09-04] MEDS: HABITROL TD SCH (11:41)
--- NOTE | 2018-09-04 13:23 | Progress Note ---
Subjective - Reason for Consult Consult date: 09/04/18 Reason for consult: Psychiatry Follow-up - Chief Complaint Chief complaint: "Hello" 57-year-old AA male with history of alcohol abuse presents to ED requesting alcohol detox. Today the patient is calm and cooperative during the assessment. He stated that he is feeling much better. He stated that he plan to use [facility] rehab services when discharged. He denies SI/HI's and AVH's. Mental Status Exam - Vital signs Last Vital Signs Temp 100.3 F H 09/04/18 11:24 Pulse 107 H 09/04/18 11:24 Resp 20 09/04/18 11:24 BP 125/74 09/04/18 11:24 Pulse Ox 97 09/04/18 11:24 - Exam Narrative exam: MSE: Appearance: calm, cooperative Behavior: regular eye contact Speech: regular rate and tone Mood: "okay" Affect: congruent to mood Thought Process: more organized Thought Content: denies SI/HI's and AH's Motor Activity: lying in bed Cognition: A/O x 3 Insight: fair Judgment: fair Assessment and Plan Impression: Alcohol Use DO. Delirium. Today the patient is calm and cooperative during the assessment. Mild tremors noted (etoh). The patient is tachycardic. Mild tremors noted (etoh). The patient's mental status is improving. DDx: R/O Mood DO Recommendation/Plan: Recommend CIWA Protocol. Will assess the patient daily. Recommend Delirium precautions below: 1. Frequently reorient patient and involve him/her in their care (simple explanations of procedures, tests, medications). 2. Lights on and shades open during daytime hours. 3. Write date and goals of care in a visible place. 4. Try to avoid unnecessary interruptions to sleep during nighttime hours. 5. Obtain glasses, hearing aids from home if patient uses these at baseline. 6. Avoid medications that may exacerbate delirium (especially narcotics, benzodiazepines, barbiturates, ambien, lunesta, and medications with excessive anticholinergic properties). Use Ativan per CIWA protocol only. Dispo: Assist patient with possible Partial Hospitalization Program (PHP) placement to [facility] once medically clear. Staffed with Dr Castaneda.
--- NOTE | 2018-09-04 14:55 | Progress Note ---
Assessment and Plan Assessment and plan: Patient is 57 yo man with a history of etoh dependency, tobacco dependency, alcohol hepatitis and GERD who presents to [facility] ED for medical clearance to go to [place] detox program. 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 Minerva shay to be renewed as he got confused last night History Interval history: Patient was seen and examined. Follow-up on current diagnosis AMS. Overnight eventful as patient got confused again. Patient denies any chest pain, shortness breath, nausea/vomiting or severe headaches. Imaging, nursing note, chart, labs and old chart reviewed. Discussed with patient and at bedside. New onset fevers Hospitalist Physical - Physical exam Narrative exam: Gen: cachetic, bmi 16, NAD, Awake, Alert, orientated x 3 HEENT: NCAT, EOMI, PERRL, OP Clear Neck: supple, no adenopathy, no thyromegaly, no JVD CVS/Heart: Regualar tachy, normal S1S2, pulses present bilaterally Chest/Lungs: CTA B, Symmetrical chest expansion, good air entry bilaterally GI/Abdomen: soft, NTND, good bowel sounds, no guarding or rebound /Bladder: no suprapubic tenderness, no CVA or paraspinal tenderness Extermity/Skin: no c/c/e, no obvious rash MSK: FROM x 4 Neuro: CN 2-12 grossly intact, tremors, following all commands Psych: calm - Constitutional Vitals: Temp Pulse Resp BP Pulse Ox 100.3 F H 107 H 20 125/74 97 09/04/18 11:24 09/04/18 11:24 09/04/18 11:24 09/04/18 11:24 09/04/18 11:24 General appearance: Present: no acute distress. Absent: well-nourished Results - Labs CBC & Chem 7: 09/04/18 04:58 09/04/18 04:58 Labs: Laboratory Last Values WBC 4.0 K/mm3 (4.5-11.0) L 09/04/18 04:58 RBC 3.40 M/mm3 (3.65-5.03) L 09/04/18 04:58 Hgb 9.8 gm/dl (11.8-15.2) L 09/04/18 04:58 Hct 30.7 % (35.5-45.6) L 09/04/18 04:58 MCV 90 fl (84-94) 09/04/18 04:58 MCH 29 pg (28-32) 09/04/18 04:58 MCHC 32 % (32-34) 09/04/18 04:58 RDW 16.3 % (13.2-15.2) H 09/04/18 04:58 Plt Count 94 K/mm3 (140-440) L 09/04/18 04:58 Lymph % (Auto) 17.4 % (13.4-35.0) 08/31/18 13:49 [place] % (Auto) 8.1 % (0.0-7.3) H 08/31/18 13:49 Eos % (Auto) 0.5 % (0.0-4.3) 08/31/18 13:49 Baso % (Auto) 1.0 % (0.0-1.8) 08/31/18 13:49 Lymph # 0.6 K/mm3 (1.2-5.4) L 08/31/18 13:49 [place] # 0.3 K/mm3 (0.0-0.8) 08/31/18 13:49 Eos # 0.0 K/mm3 (0.0-0.4) 08/31/18 13:49 Baso # 0.0 K/mm3 (0.0-0.1) 08/31/18 13:49 Add Manual Diff Complete 08/30/18 19:16 Total Counted 100 08/30/18 19:16 Seg Neutrophils % 73.0 % (40.0-70.0) H 08/31/18 13:49 Seg Neuts % (Manual) 84.0 % (40.0-70.0) H 08/30/18 19:16 Band Neutrophils % 5.0 % 08/30/18 19:16 Lymphocytes % (Manual) 8.0 % (13.4-35.0) L 08/30/18 19:16 Reactive Lymphs % (Man) 0 % 08/30/18 19:16 Monocytes % (Manual) 2.0 % (0.0-7.3) 08/30/18 19:16 Eosinophils % (Manual) 0 % (0.0-4.3) 08/30/18 19:16 Basophils % (Manual) 1.0 % (0.0-1.8) 08/30/18 19:16 Metamyelocytes % 0 % 08/30/18 19:16 Myelocytes % 0 % 08/30/18 19:16 Promyelocytes % 0 % 08/30/18 19:16 Blast Cells % 0 % 08/30/18 19:16 Nucleated RBC % Not Reportable 08/30/18 19:16 Seg Neutrophils # 2.4 K/mm3 (1.8-7.7) 08/31/18 13:49 Seg Neutrophils # Man 3.7 K/mm3 (1.8-7.7) 08/30/18 19:16 Band Neutrophils # 0.2 K/mm3 08/30/18 19:16 Lymphocytes # (Manual) 0.4 K/mm3 (1.2-5.4) L 08/30/18 19:16 Abs React Lymphs (Man) 0.0 K/mm3 08/30/18 19:16 Monocytes # (Manual) 0.1 K/mm3 (0.0-0.8) 08/30/18 19:16 Eosinophils # (Manual) 0.0 K/mm3 (0.0-0.4) 08/30/18 19:16 Basophils # (Manual) 0.0 K/mm3 (0.0-0.1) 08/30/18 19:16 Metamyelocytes # 0.0 K/mm3 08/30/18 19:16 Myelocytes # 0.0 K/mm3 08/30/18 19:16 Promyelocytes # 0.0 K/mm3 08/30/18 19:16 Blast Cells # 0.0 K/mm3 08/30/18 19:16 WBC Morphology Not Reportable 08/30/18 19:16 Hypersegmented Neuts Not Reportable 08/30/18 19:16 Hyposegmented Neuts Not Reportable 08/30/18 19:16 Hypogranular Neuts Not Reportable 08/30/18 19:16 Smudge Cells Not Reportable 08/30/18 19:16 Toxic Granulation Not Reportable 08/30/18 19:16 Toxic Vacuolation Not Reportable 08/30/18 19:16 Dohle Bodies Not Reportable 08/30/18 19:16 Pelger-Huet Anomaly Not Reportable 08/30/18 19:16 Hugo Rods Not Reportable 08/30/18 19:16 Platelet Estimate Appears decreased 08/30/18 19:16 Clumped Platelets Not Reportable 08/30/18 19:16 Plt Clumps, EDTA Not Reportable 08/30/18 19:16 Large Platelets Not Reportable 08/30/18 19:16 Giant Platelets Not Reportable 08/30/18 19:16 Platelet Satelliting Not Reportable 08/30/18 19:16 Plt Morphology Comment Not Reportable 08/30/18 19:16 RBC Morphology Not Reportable 08/30/18 19:16 Dimorphic RBCs Not Reportable 08/30/18 19:16 Polychromasia Not Reportable 08/30/18 19:16 Hypochromasia 1+ 08/30/18 19:16 Poikilocytosis Not Reportable 08/30/18 19:16 Anisocytosis Not Reportable 08/30/18 19:16 Microcytosis Not Reportable 08/30/18 19:16 Macrocytosis Not Reportable 08/30/18 19:16 Spherocytes Not Reportable 08/30/18 19:16 Pappenheimer Bodies Not Reportable 08/30/18 19:16 Sickle Cells Not Reportable 08/30/18 19:16 Target Cells 1+ 08/30/18 19:16 Tear Drop Cells Not Reportable 08/30/18 19:16 Ovalocytes Not Reportable 08/30/18 19:16 Helmet Cells Not Reportable 08/30/18 19:16 [place] Bodies Not Reportable 08/30/18 19:16 [place] Rings Not Reportable 08/30/18 19:16 Esau Cells Not Reportable 08/30/18 19:16 Bite Cells Not Reportable 08/30/18 19:16 Crenated Cell Not Reportable 08/30/18 19:16 Elliptocytes Not Reportable 08/30/18 19:16 Acanthocytes (Spur) Not Reportable 08/30/18 19:16 Rouleaux Not Reportable 08/30/18 19:16 Hemoglobin C Crystals Not Reportable 08/30/18 19:16 Schistocytes Not Reportable 08/30/18 19:16 Malaria parasites Not Reportable 08/30/18 19:16 Carlos Eduardo Bodies Not Reportable 08/30/18 19:16 Hem Pathologist Commnt No 08/30/18 19:16 PT 16.3 Sec. (12.2-14.9) H 08/31/18 13:49 INR 1.27 (0.87-1.13) H 08/31/18 13:49 APTT 30.8 Sec. (24.2-36.6) 08/31/18 13:49 Sodium 136 mmol/L (137-145) L 09/04/18 04:58 Potassium 4.2 mmol/L (3.6-5.0) 09/04/18 04:58 Chloride 101.5 mmol/L (98-107) 09/04/18 04:58 Carbon Dioxide 25 mmol/L (22-30) 09/04/18 04:58 Anion Gap 14 mmol/L 09/04/18 04:58 BUN 3 mg/dL (9-20) L 09/04/18 04:58 Creatinine 0.5 mg/dL (0.8-1.5) L 09/04/18 04:58 Estimated GFR > 60 ml/min 09/04/18 04:58 BUN/Creatinine Ratio 6 % 09/04/18 04:58 Glucose 113 mg/dL (75-100) H 09/04/18 04:58 Lactic Acid 3.20 mmol/L (0.7-2.0) H* 09/01/18 06:53 Calcium 7.9 mg/dL (8.4-10.2) L 09/04/18 04:58 Magnesium 1.20 mg/dL (1.7-2.3) L 09/04/18 04:58 Total Bilirubin 1.30 mg/dL (0.1-1.2) H 09/02/18 05:26 AST 140 units/L (5-40) H 09/02/18 05:26 ALT 33 units/L (7-56) 09/02/18 05:26 Alkaline Phosphatase 144 units/L (35-129) H 09/02/18 05:26 Ammonia 86.0 umol/L (25-60) H 08/31/18 21:53 Total Creatine Kinase 118 units/L (55-170) 08/31/18 13:49 CK-MB (CK-2) 1.3 ng/mL (0.0-4.0) 08/31/18 13:49 CK-MB (CK-2) Rel Index 1.1 (0-4) 08/31/18 13:49 Troponin T < 0.010 ng/mL (0.00-0.029) 08/31/18 13:49 NT-Pro-B Natriuret Pep 126.1 pg/mL (0-900) 08/31/18 13:49 Total Protein 7.0 g/dL (6.3-8.2) 09/02/18 05:26 Albumin 2.6 g/dL (3.9-5) L 09/02/18 05:26 Albumin/Globulin Ratio 0.6 % 09/02/18 05:26 Amylase 183 units/L (27-131) H 08/31/18 21:53 Lipase 128 units/L (13-60) H 08/31/18 13:49 TSH 2.380 mlU/mL (0.270-4.200) 08/31/18 13:49 Free T4 1.14 ng/dL (0.76-1.46) 08/31/18 13:49 Urine Color [place] (Yellow) 08/30/18 21:16 Urine Turbidity Slightly-cloudy (Clear) 08/30/18 21:16 Urine pH 7.0 (5.0-7.0) 08/30/18 21:16 Ur Specific [place] 1.015 (1.003-1.030) 08/30/18 21:16 Urine Protein 30 mg/dl mg/dL (Negative) 08/30/18 21:16 Urine Glucose (UA) Neg mg/dL (Negative) 08/30/18 21:16 Urine Ketones Neg mg/dL (Negative) 08/30/18 21:16 Urine Blood Neg (Negative) 08/30/18 21:16 Urine Nitrite Neg (Negative) 08/30/18 21:16 Urine Bilirubin Sm (Negative) 08/30/18 21:16 Urine Ictotest Negative (Negative) 08/30/18 21:16 Urine Urobilinogen 4.0 mg/dL (<2.0) 08/30/18 21:16 Ur Leukocyte Esterase Neg (Negative) 08/30/18 21:16 Urine WBC (Auto) 7.0 /HPF (0.0-6.0) H 08/30/18 21:16 Urine RBC (Auto) 2.0 /HPF (0.0-6.0) 08/30/18 21:16 Hyaline Casts 3 /LPF 08/30/18 21:16 Urine Mucus Few /HPF 08/30/18 21:16 Urine Opiates Screen Presumptive negative 08/30/18 Unknown Urine Methadone Screen Presumptive negative 08/30/18 Unknown Ur Barbiturates Screen Presumptive negative 08/30/18 Unknown Ur Phencyclidine Scrn Presumptive negative 08/30/18 Unknown Ur Amphetamines Screen Presumptive positive 08/30/18 Unknown U Benzodiazepines Scrn Presumptive negative 08/30/18 Unknown Urine Cocaine Screen Presumptive negative 08/30/18 Unknown U Marijuana (THC) Screen Presumptive negative 08/30/18 Unknown Drugs of Abuse Note Disclamer 08/30/18 Unknown Plasma/Serum Alcohol < 0.01 % (0-0.07) 08/30/18 19:16 Hepatitis A IgM Ab Non-reactive (NonReactive) 08/31/18 13:49 Hep Bs Antigen Non-reactive (Negative) 08/31/18 13:49 Hep B Core IgM Ab Non-reactive (NonReactive) 08/31/18 13:49 Hepatitis C Antibody Non-reactive (NonReactive) 08/31/18 13:49 Nutrition/Malnutrition Assess - Dietary Evaluation Nutrition/Malnutrition Findings: Nutrition Notes Start: 09/02/18 15:17 Freq: Status: Active Protocol: Document 09/04/18 13:03 EPI (Rec: 09/04/18 13:10 EPI [id number] [email or web address]) Nutrition Notes Initial or Follow up Reassessment Other Pertinent Diagnosis EtOH withdrawal Current Diet Regular + Ensure Enlive daily Labs/Tests Mg 1.2 Medications reviewed Height 6 ft Weight 57.4 kg [place] Body Weight (lbs) 178.0 BMI 17.2 Weight Status Underweight Subjective/Other Information Pt has consumed 38% of meals since admission, however, he says his brings him a plate of food daily and he eats "all of it". He reports a good appetite. He drinks ONS. Burn Absent Trauma Absent GI Symptoms None Food Allergy No Skin Integrity/Comment Td Ang[place] Current % PO FAIR (50-74%) #1 Nutrition Diagnoses Predicted suboptimal energy intake Underweight Comments: CHANGED Etiology EtOH dependence As Evidenced by Signs and Symptoms BMI 17.2 Is patient on ventilator? No Is Patient Ambulatory and/or Out of Bed No REE-([facility]-confined to bed) 1723.284 Kcal/Kg value to use for calculation 35 Approximate Energy Requirements Using 2009 kcal/Kg Calculation Used for Recommendations Kcal/kg Additional Notes Pro needs 1.2-1.5g/k-86g/ day Fluid needs 1ml/kcal Malnutrition Assessment Food and Nutrition Intake (Severe) <50% EST ENER REQ 5 DAYS Interpretation of weight loss (Severe) > 7.5% in 3 months Body Fat Depletion (Severe) Mod to Severe Depletion Muscle Mass (severe) Mod to Cristal Depletion Nutrition Intervention Change Diet Order: Continue current diet order Add Supplement/Snack (indicate name/kcal Ensure Enlive BID /protein ) Provides kCal: 700 Provides Protein (gm) 40 Goal #1 PO intake of meals plus ONS to meet 100% of nutrient needs Goal #2 Wt maintenance and/or gain Anticipated Discharge Needs: Continue ONS 2-3 times daily for wt maintenance Follow-Up By: 09/09/18 Additional Comments F/U: intakes (meals/ONS), wt
--- NOTE | 2018-09-04 17:22 | XRay Report ---
FINAL REPORT EXAM: XR CHEST 1V AP HISTORY: fever TECHNIQUE: Frontal chest radiograph. PRIORS: 08/30/2018. FINDINGS: The cardiomediastinal silhouette is normal. No focal consolidation. No pleural effusion. No pneumothorax. No acute osseous abnormality. IMPRESSION: No acute cardiopulmonary process.
[2018-09-05 06:17] LABS: Hematocrit 28.4 % (35.5-45.6); Hemoglobin 9.1 gm/dl (11.8-15.2); Mean Corpuscular HGB Conc 32 % (32-34); Mean Corpuscular Hemoglobin 29 pg (28-32); Mean Corpuscular Volume 89 fl (84-94); Platelet Count 115 K/mm3 (140-440); Red Blood Count 3.18 M/mm3 (3.65-5.03); Red Cell Distribution Width 15.9 % (13.2-15.2)
[2018-09-05 06:19] LABS: BUN/Creatinine Ratio 10; Blood Urea Nitrogen 4 mg/dL (9-20); Hemolysis Index 9
[2018-09-05 07:25] LABS: Bilirubin,Urine NEG (Negative); Blood,Urine NEG (Negative); Color,Urine Yellow (Yellow); Protein,Urine <15 mg/dL mg/dL (Negative)
[2018-09-05 09:23] VITALS: BP 121/76
[2018-09-05] MEDS: HABITROL TD SCH (10:49)
--- NOTE | 2018-09-05 14:57 | Progress Note ---
Assessment and Plan Assessment and plan: spoke with Dr. Marroquin not Dr. Palma. ok to stay Original Note: Assessment and Plan Assessment and plan: Patient is 57 yo man with a history of etoh dependency, tobacco dependency, alcohol hepatitis and GERD who presents to [facility] ED for medical clearance to go to [place] detox program. 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 Palma restraints to be renewed as he got confused last night Hospitalist Physical - Constitutional Vitals: Temp Pulse Resp BP Pulse Ox 100.0 F H 105 H 28 H 121/76 97 09/05/18 05:10 09/05/18 09:22 09/05/18 05:10 09/05/18 09:22 09/05/18 05:10 General appearance: Present: no acute distress. Absent: well-nourished Results - Labs CBC & Chem 7: 09/05/18 05:42 09/05/18 05:42 Labs: Laboratory Last Values WBC 5.4 K/mm3 (4.5-11.0) 09/05/18 05:42 RBC 3.18 M/mm3 (3.65-5.03) L 09/05/18 05:42 Hgb 9.1 gm/dl (11.8-15.2) L 09/05/18 05:42 Hct 28.4 % (35.5-45.6) L 09/05/18 05:42 MCV 89 fl (84-94) 09/05/18 05:42 MCH 29 pg (28-32) 09/05/18 05:42 MCHC 32 % (32-34) 09/05/18 05:42 RDW 15.9 % (13.2-15.2) H 09/05/18 05:42 Plt Count 115 K/mm3 (140-440) L 09/05/18 05:42 Lymph % (Auto) 17.4 % (13.4-35.0) 08/31/18 13:49 [place] % (Auto) 8.1 % (0.0-7.3) H 08/31/18 13:49 Eos % (Auto) 0.5 % (0.0-4.3) 08/31/18 13:49 Baso % (Auto) 1.0 % (0.0-1.8) 08/31/18 13:49 Lymph # 0.6 K/mm3 (1.2-5.4) L 08/31/18 13:49 [place] # 0.3 K/mm3 (0.0-0.8) 08/31/18 13:49 Eos # 0.0 K/mm3 (0.0-0.4) 08/31/18 13:49 Baso # 0.0 K/mm3 (0.0-0.1) 08/31/18 13:49 Add Manual Diff Complete 08/30/18 19:16 Total Counted 100 08/30/18 19:16 Seg Neutrophils % 73.0 % (40.0-70.0) H 08/31/18 13:49 Seg Neuts % (Manual) 84.0 % (40.0-70.0) H 08/30/18 19:16 Band Neutrophils % 5.0 % 08/30/18 19:16 Lymphocytes % (Manual) 8.0 % (13.4-35.0) L 08/30/18 19:16 Reactive Lymphs % (Man) 0 % 08/30/18 19:16 Monocytes % (Manual) 2.0 % (0.0-7.3) 08/30/18 19:16 Eosinophils % (Manual) 0 % (0.0-4.3) 08/30/18 19:16 Basophils % (Manual) 1.0 % (0.0-1.8) 08/30/18 19:16 Metamyelocytes % 0 % 08/30/18 19:16 Myelocytes % 0 % 08/30/18 19:16 Promyelocytes % 0 % 08/30/18 19:16 Blast Cells % 0 % 08/30/18 19:16 Nucleated RBC % Not Reportable 08/30/18 19:16 Seg Neutrophils # 2.4 K/mm3 (1.8-7.7) 08/31/18 13:49 Seg Neutrophils # Man 3.7 K/mm3 (1.8-7.7) 08/30/18 19:16 Band Neutrophils # 0.2 K/mm3 08/30/18 19:16 Lymphocytes # (Manual) 0.4 K/mm3 (1.2-5.4) L 08/30/18 19:16 Abs React Lymphs (Man) 0.0 K/mm3 08/30/18 19:16 Monocytes # (Manual) 0.1 K/mm3 (0.0-0.8) 08/30/18 19:16 Eosinophils # (Manual) 0.0 K/mm3 (0.0-0.4) 08/30/18 19:16 Basophils # (Manual) 0.0 K/mm3 (0.0-0.1) 08/30/18 19:16 Metamyelocytes # 0.0 K/mm3 08/30/18 19:16 Myelocytes # 0.0 K/mm3 08/30/18 19:16 Promyelocytes # 0.0 K/mm3 08/30/18 19:16 Blast Cells # 0.0 K/mm3 08/30/18 19:16 WBC Morphology Not Reportable 08/30/18 19:16 Hypersegmented Neuts Not Reportable 08/30/18 19:16 Hyposegmented Neuts Not Reportable 08/30/18 19:16 Hypogranular Neuts Not Reportable 08/30/18 19:16 Smudge Cells Not Reportable 08/30/18 19:16 Toxic Granulation Not Reportable 08/30/18 19:16 Toxic Vacuolation Not Reportable 08/30/18 19:16 Dohle Bodies Not Reportable 08/30/18 19:16 Pelger-Huet Anomaly Not Reportable 08/30/18 19:16 Hugo Rods Not Reportable 08/30/18 19:16 Platelet Estimate Appears decreased 08/30/18 19:16 Clumped Platelets Not Reportable 08/30/18 19:16 Plt Clumps, EDTA Not Reportable 08/30/18 19:16 Large Platelets Not Reportable 08/30/18 19:16 Giant Platelets Not Reportable 08/30/18 19:16 Platelet Satelliting Not Reportable 08/30/18 19:16 Plt Morphology Comment Not Reportable 08/30/18 19:16 RBC Morphology Not Reportable 08/30/18 19:16 Dimorphic RBCs Not Reportable 08/30/18 19:16 Polychromasia Not Reportable 08/30/18 19:16 Hypochromasia 1+ 08/30/18 19:16 Poikilocytosis Not Reportable 08/30/18 19:16 Anisocytosis Not Reportable 08/30/18 19:16 Microcytosis Not Reportable 08/30/18 19:16 Macrocytosis Not Reportable 08/30/18 19:16 Spherocytes Not Reportable 08/30/18 19:16 Pappenheimer Bodies Not Reportable 08/30/18 19:16 Sickle Cells Not Reportable 08/30/18 19:16 Target Cells 1+ 08/30/18 19:16 Tear Drop Cells Not Reportable 08/30/18 19:16 Ovalocytes Not Reportable 08/30/18 19:16 Helmet Cells Not Reportable 08/30/18 19:16 [place] Bodies Not Reportable 08/30/18 19:16 [place] Rings Not Reportable 08/30/18 19:16 Esau Cells Not Reportable 08/30/18 19:16 Bite Cells Not Reportable 08/30/18 19:16 Crenated Cell Not Reportable 08/30/18 19:16 Elliptocytes Not Reportable 08/30/18 19:16 Acanthocytes (Spur) Not Reportable 08/30/18 19:16 Rouleaux Not Reportable 08/30/18 19:16 Hemoglobin C Crystals Not Reportable 08/30/18 19:16 Schistocytes Not Reportable 08/30/18 19:16 Malaria parasites Not Reportable 08/30/18 19:16 Carlos Eduardo Bodies Not Reportable 08/30/18 19:16 Hem Pathologist Commnt No 08/30/18 19:16 PT 16.3 Sec. (12.2-14.9) H 08/31/18 13:49 INR 1.27 (0.87-1.13) H 08/31/18 13:49 APTT 30.8 Sec. (24.2-36.6) 08/31/18 13:49 Sodium 136 mmol/L (137-145) L 09/05/18 05:42 Potassium 4.2 mmol/L (3.6-5.0) 09/05/18 05:42 Chloride 102.4 mmol/L (98-107) 09/05/18 05:42 Carbon Dioxide 24 mmol/L (22-30) 09/05/18 05:42 Anion Gap 14 mmol/L 09/05/18 05:42 BUN 4 mg/dL (9-20) L 09/05/18 05:42 Creatinine 0.4 mg/dL (0.8-1.5) L 09/05/18 05:42 Estimated GFR > 60 ml/min 09/05/18 05:42 BUN/Creatinine Ratio 10 % 09/05/18 05:42 Glucose 105 mg/dL (75-100) H 09/05/18 05:42 Lactic Acid 3.20 mmol/L (0.7-2.0) H* 09/01/18 06:53 Calcium 8.0 mg/dL (8.4-10.2) L 09/05/18 05:42 Magnesium 1.20 mg/dL (1.7-2.3) L 09/04/18 04:58 Total Bilirubin 1.30 mg/dL (0.1-1.2) H 09/02/18 05:26 AST 140 units/L (5-40) H 09/02/18 05:26 ALT 33 units/L (7-56) 09/02/18 05:26 Alkaline Phosphatase 144 units/L (35-129) H 09/02/18 05:26 Ammonia 86.0 umol/L (25-60) H 08/31/18 21:53 Total Creatine Kinase 118 units/L (55-170) 08/31/18 13:49 CK-MB (CK-2) 1.3 ng/mL (0.0-4.0) 08/31/18 13:49 CK-MB (CK-2) Rel Index 1.1 (0-4) 08/31/18 13:49 Troponin T < 0.010 ng/mL (0.00-0.029) 08/31/18 13:49 NT-Pro-B Natriuret Pep 126.1 pg/mL (0-900) 08/31/18 13:49 Total Protein 7.0 g/dL (6.3-8.2) 09/02/18 05:26 Albumin 2.6 g/dL (3.9-5) L 09/02/18 05:26 Albumin/Globulin Ratio 0.6 % 09/02/18 05:26 Amylase 183 units/L (27-131) H 08/31/18 21:53 Lipase 128 units/L (13-60) H 08/31/18 13:49 TSH 2.380 mlU/mL (0.270-4.200) 08/31/18 13:49 Free T4 1.14 ng/dL (0.76-1.46) 08/31/18 13:49 Urine Color Yellow (Yellow) 09/05/18 04:07 Urine Turbidity Clear (Clear) 09/05/18 04:07 Urine pH 8.0 (5.0-7.0) H 09/05/18 04:07 Ur Specific [place] 1.006 (1.003-1.030) 09/05/18 04:07 Urine Protein <15 mg/dl mg/dL (Negative) 09/05/18 04:07 Urine Glucose (UA) Neg mg/dL (Negative) 09/05/18 04:07 Urine Ketones Neg mg/dL (Negative) 09/05/18 04:07 Urine Blood Neg (Negative) 09/05/18 04:07 Urine Nitrite Neg (Negative) 09/05/18 04:07 Urine Bilirubin Neg (Negative) 09/05/18 04:07 Urine Ictotest Negative (Negative) 08/30/18 21:16 Urine Urobilinogen 4.0 mg/dL (<2.0) 09/05/18 04:07 Ur Leukocyte Esterase Neg (Negative) 09/05/18 04:07 Urine WBC (Auto) 7.0 /HPF (0.0-6.0) H 09/05/18 04:07 Urine RBC (Auto) 3.0 /HPF (0.0-6.0) 09/05/18 04:07 U Epithel Cells (Auto) < 1.0 /HPF (0-13.0) 09/05/18 04:07 Hyaline Casts 3 /LPF 08/30/18 21:16 Urine Mucus Few /HPF 08/30/18 21:16 Urine Opiates Screen Presumptive negative 08/30/18 Unknown Urine Methadone Screen Presumptive negative 08/30/18 Unknown Ur Barbiturates Screen Presumptive negative 08/30/18 Unknown Ur Phencyclidine Scrn Presumptive negative 08/30/18 Unknown Ur Amphetamines Screen Presumptive positive 08/30/18 Unknown U Benzodiazepines Scrn Presumptive negative 08/30/18 Unknown Urine Cocaine Screen Presumptive negative 08/30/18 Unknown U Marijuana (THC) Screen Presumptive negative 08/30/18 Unknown Drugs of Abuse Note Disclamer 08/30/18 Unknown Plasma/Serum Alcohol < 0.01 % (0-0.07) 08/30/18 19:16 Hepatitis A IgM Ab Non-reactive (NonReactive) 08/31/18 13:49 Hep Bs Antigen Non-reactive (Negative) 08/31/18 13:49 Hep B Core IgM Ab Non-reactive (NonReactive) 08/31/18 13:49 Hepatitis C Antibody Non-reactive (NonReactive) 08/31/18 13:49 Nutrition/Malnutrition Assess - Dietary Evaluation Nutrition/Malnutrition Findings: Nutrition Notes Start: 09/02/18 15:17 Freq: Status: Active Protocol: Document 09/04/18 13:03 EPI (Rec: 09/04/18 13:10 [facility] [email or web address]) Nutrition Notes Initial or Follow up Reassessment Other Pertinent Diagnosis EtOH withdrawal Current Diet Regular + Ensure Enlive daily Labs/Tests Mg 1.2 Medications reviewed Height 6 ft Weight 57.4 kg [place] Body Weight (lbs) 178.0 BMI 17.2 Weight Status Underweight Subjective/Other Information Pt has consumed 38% of meals since admission, however, he says his brings him a plate of food daily and he eats "all of it". He reports a good appetite. He drinks ONS. Burn Absent Trauma Absent GI Symptoms None Food Allergy No Skin Integrity/Comment Td 21 Current % PO FAIR (50-74%) #1 Nutrition Diagnoses Predicted suboptimal energy intake Underweight Comments: CHANGED Etiology EtOH dependence As Evidenced by Signs and Symptoms BMI 17.2 Is patient on ventilator? No Is Patient Ambulatory and/or Out of Bed No REE-([facility]-confined to bed) 1723.284 Kcal/Kg value to use for calculation 35 Approximate Energy Requirements Using 2008 kcal/Kg Calculation Used for Recommendations Kcal/kg Additional Notes Pro needs 1.2-1.5g/k-86g/ day Fluid needs 1ml/kcal Malnutrition Assessment Food and Nutrition Intake (Severe) <50% EST ENER REQ 5 DAYS Interpretation of weight loss (Severe) > 7.5% in 3 months Body Fat Depletion (Severe) Mod to Severe Depletion Muscle Mass (severe) Mod to Cristal Depletion Nutrition Intervention Change Diet Order: Continue current diet order Add Supplement/Snack (indicate name/kcal Ensure Enlive BID /protein ) Provides kCal: 700 Provides Protein (gm) 40 Goal #1 PO intake of meals plus ONS to meet 100% of nutrient needs Goal #2 Wt maintenance and/or gain Anticipated Discharge Needs: Continue ONS 2-3 times daily for wt maintenance Follow-Up By: 09/09/18 Additional Comments F/U: intakes (meals/ONS), wt
--- NOTE | 2018-09-05 14:59 | Discharge Summary ---
Providers - Providers Date of Admission: 08/31/18 13:41 Attending physician: CHIDI MCDOWELL MD 08/30/18 20:40 psychiatry consult [Consult to Mental Health] [CONS] Stat Reason For Exam: alcohol detox Place consult to:: mental health Notified:: yes 09/01/18 14:01 Consult to Dietitian/Nutrition [CONS] Routine Physician Instructions: Reason For Exam: Reason for Consult: Malnutrition 09/01/18 14:06 Consult to Physician [CONS] Routine Comment: Consulting Provider: KRISTY HARPER Physician Instructions: Reason For Exam: alcohol liver disease 09/03/18 14:31 Physical Therapy Evaluation and Treat [CONS] Routine Comment: Reason For Exam: gait evaluation/ambulatory dysfunction 09/04/18 14:48 Consult to Physician [CONS] Routine Comment: Consulting Provider: VERNA MOLINA Physician Instructions: I notified Reason For Exam: new onset Fevers Primary care physician: [employer] ANALYST Hospitalization Condition: Stable Hospital course: 57 yo man with a history of etoh dependency, tobacco dependency, alcohol hepatitis and GERD who presents to [facility] ED , he presented complaining of alcohol withdrawal. Stating that he wanted to be medically treated syncopal to [place] program. He received IV fluids, he was treated with CIWA protocol. He received counseling about cessation. Given transaminitis and cytopenia, he had right upper quadrant ultrasound which was negative. He was seen by GI who did not recommend any further inpatient test, but recommend outpatient EGD for variceal screening. His electrolytes were repleted. Upon discharge the patient plans to check himself into [facility] detox program. Diagnoses -Alcohol dependency with withdrawal: -Acute toxic metabolic encephalopathy: -Tobacco dependency: -Severe malnutrition: -Alcohol liver disease with transaminitis -Lactic acidosis with dehydration: -SIRS with organ dysfunction -Hyokalemia; -Hypomagnesemia: - Disposition: DC-01 TO HOME OR SELFCARE Time spent for discharge: 33 minutes Core Measure Documentation - Palliative Care Palliative Care/ Comfort Measures: Not Applicable - Core Measures Any of the following diagnoses?: none Exam - Constitutional Vitals: Temp Pulse Resp BP Pulse Ox 100.0 F H 105 H 28 H 121/76 97 09/05/18 05:10 09/05/18 09:22 09/05/18 05:10 09/05/18 09:22 09/05/18 05:10 General appearance: Present: no acute distress, well-nourished - EENT Eyes: Present: PERRL ENT: hearing intact, clear oral mucosa - Neck Neck: Present: supple, normal ROM - Respiratory Respiratory effort: normal Respiratory: bilateral: CTA - Cardiovascular Heart Sounds: Present: S1 & S2. Absent: rub, click - Extremities Extremities: pulses symmetrical, No edema Peripheral Pulses: within normal limits - Abdominal General gastrointestinal: Present: soft, non-tender, non-distended, normal bowel sounds Male genitourinary: Present: normal - Integumentary Integumentary: Present: clear, warm, dry - Musculoskeletal Musculoskeletal: gait normal, strength equal bilaterally - Psychiatric Psychiatric: appropriate mood/affect, intact judgment & insight - Neurologic Neurologic: CNII-XII intact, moves all extremities Plan Follow up with: PRIMARY CARE,MD [Primary Care Provider] - 3-5 Days Prescriptions: Folic Acid 400 mcg PO DAILY #30 Nicotine [Habitrol] 21 mg TD QDAY #30 patch Thiamine [Vitamin B-1] 100 mg PO QDAY #30 tablet
== END 2018-09-05 18:00 | disposition home or self-care (01) | DRG 432 ==
LOC: ED 17:50 → 3A 08-31 13:41
PROVIDERS: ADMIT Internal Medicine; ATTEND Internal Medicine
DX: K70.9 Alcoholic liver disease, unspecified (principal); G92 Toxic encephalopathy; E43 Unspecified severe protein-calorie malnutrition; R65.11 Systemic inflammatory response syndrome (SIRS) of non-infectious origin with acute organ dysfunction; E87.1 Hypo-osmolality and hyponatremia; E87.2 Acidosis; F10.232 Alcohol dependence with withdrawal with perceptual disturbance; R00.0 Tachycardia, unspecified; R94.31 Abnormal electrocardiogram [ECG] [EKG]; F17.200 Nicotine dependence, unspecified, uncomplicated; R74.0 Nonspecific elevation of levels of transaminase and lactic acid dehydrogenase [LDH]; D75.9 Disease of blood and blood-forming organs, unspecified; E86.0 Dehydration; E87.6 Hypokalemia; E83.42 Hypomagnesemia; R41.0 Disorientation, unspecified; F12.90 Cannabis use, unspecified, uncomplicated; K21.0 Gastro-esophageal reflux disease with esophagitis; F15.10 Other stimulant abuse, uncomplicated
CPT/HCPCS: 36415; 70450; 71045; 76705; 80048; 80053; 80074; 80307; 80320; 81001; 82140; 82150; 82550; 82553; 83690; 83735; 83880; 84439; 84443; 84484; 85007; 85025; 85027; 85610; 85730; 87040; 93005; 93010; 96361; 96365; 96366; 99406; G0378; G0480; J1630; J2060; J3411; J3475; J3480; J7030; J7042

== ENCOUNTER 2019-02-22 16:50 | Emergency (ER) | payer OTHER ==
--- NOTE | 2019-02-22 17:46 | Emergency Department Report ---
HPI - General Chief Complaint: Alcohol Time Seen by Provider: 02/22/19 17:18 - HPI HPI: Room 20 The patient is a 58-year-old male presenting with chief complaint of dizziness and syncope. The patient states he's had dizziness with standing since Novem er. The patient states he was admitted to the hospital several times most recent which was approximately 2 weeks ago and remitted to. Patient was discharged to rehabilitation and eventually sent home. The patient states 3 days ago he had a syncopal episode on the stairs causing him to fall. The patient states last night he had 2 more syncopal episodes while standing. Patient complains of mild pain in the right knee states he feels dizzy. Location: [See above] Duration: [See above] Quality: [See above] Severity: [See above] Modifying factors: [see above] Context: [see above] Mode of transportation: [not driving] ED Past Medical Hx - Past Medical History Previous Medical History?: Yes Hx GERD: Yes Hx Liver Disease: Yes (Hepatitis due to ETOH abuse) Hx HIV: No Additional medical history: Dizziness, Dermatitis, Epigastric abdominal pain, Elevated liver function test, Gastritis, Thrombocytopenia, Both sides inquinal hernia, Sinus problems - Surgical History Past Surgical History?: No - Family History Family history: no significant - Social History Smoking Status: Current Every Day Smoker (3/4 pack per day) Substance Use Type: None (denies illicit drug use), Alcohol (occasional) - Medications Home Medications: Home Medications Medication Instructions Recorded Confirmed Last Taken Type Folic Acid 400 mcg PO DAILY #30 09/05/18 Unknown Rx Nicotine [Habitrol] 21 mg TD QDAY #30 patch 09/05/18 Unknown Rx Thiamine [Vitamin B-1] 100 mg PO QDAY #30 tablet 09/05/18 Unknown Rx ED Review of Systems ROS: Stated complaint: HYPOTENSIVE Other details as noted in HPI Constitutional: no symptoms reported Eyes: denies: eye pain ENT: denies: throat pain Respiratory: no symptoms reported Cardiovascular: denies: chest pain Endocrine: no symptoms reported Gastrointestinal: denies: abdominal pain Genitourinary: denies: dysuria Musculoskeletal: arthralgia Neurological: vertigo Physical Exam - Physical Exam Vital Signs: Vital Signs 02/22/19 02/22/19 17:07 17:12 Temperature 98.2 F Pulse Rate 78 83 Respiratory 22 18 Rate Blood Pressure 109/64 [Left] O2 Sat by Pulse 99 100 Oximetry Physical Exam: GENERAL: The patient is well-developed thin male lying on stretcher not ap pearing to be in acute distress. [] HEENT: Normocephalic. Atraumatic. Extraocular motions are intact. Patient has moist mucous membranes. No nystagmus noted NECK: Supple. Trachea midline CHEST/LUNGS: Clear to auscultation. There is no respiratory distress noted. HEART/CARDIOVASCULAR: Regular. There is no tachycardia. There is no gallop rub or murmur. ABDOMEN: Abdomen is soft, nontender. Patient has normal bowel sounds. There is no abdominal distention. SKIN: There is no rash. There are healing abrasions to the right knee and right. There is no diaphoresis. NEURO: The patient is awake, alert, and oriented. The patient is cooperative. The patient has no focal neurologic deficits. The patient has normal speech. Cranial nerves II through XII grossly intact, no drift. No dysmetria noted with [id number] bilaterally MUSCULOSKELETAL: There is tenderness to palpation of the right knee. ED Course Vital Signs 02/22/19 02/22/19 17:07 17:12 Temperature 98.2 F Pulse Rate 78 83 Respiratory 22 18 Rate Blood Pressure 109/64 [Left] O2 Sat by Pulse 99 100 Oximetry - Consultations Consultation #1: 02/22/19 19:35 [facility] called 02/22/19 19:[address] Garrett 02/22/19 20:24 Case discussed with Octaviano neurosurgeon Dr. Burch - will accept patient in transfer to the [facility] ED Medical Decision Making - Lab Data Result diagrams: 02/22/19 17:41 02/22/19 17:41 - Radiology Data Radiology results: report reviewed (CT head, right knee x-ray), image reviewed (CT head, right knee x-ray) interpreted by me: Right knee x-ray-no acute fracture [facility] [address] [place] [address] Cat Scan Report Signed Patient: JENNIFER SAGASTUME MR#: [id number] : 1960 Acct:[id number] Age/Sex: 58 / M ADM Date: 02/22/19 Loc: ED Attending Dr: Ordering Physician: THANIA MARTINEZ MD Date of Service: 02/22/19 Procedure(s): CT head/brain wo con Accession Number(s): [id number] cc: THANIA MARTINEZ MD PROCEDURE: CT HEAD/BRAIN WO CON TECHNIQUE: Computerized tomography of the head was performed without contrast material. CT DOSE LENGTH PRODUCT: 920.5 mGycm HISTORY: syncope COMPARISONS: Head CT dated August 30, 2018 . FINDINGS: There are bilateral frontal subdural and left temporal collections with imaging characteristics of CSF. These are new since the previous CT dated August 30, 2018 and most likely represent chronic subdural hematomas. The maximum depth of the right subdural collection measures approximately 6.7 mm. The maximal depth of the left collection measures approximately 11 mm. These result in a mild degree of mass effect on the underlying brain. There is a small focus of increased density in the left frontal paramidline region with imaging characteristics consistent with an acute subdural collection (images 29 through 36, series of 64 axial images). This is also new since the previous study. There is no evidence of acute focal parenchymal abnormality. The ventricles are normal size but are decreased in size compared with the previous study secondary to mass effect from the subdural hematomas. The visualized portions of the orbits, paranasal and mastoid sinuses are unremarkable. The bony structures are unremarkable. There is no evidence of fracture. IMPRESSION: 1. 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 There is evidence of an acute component of the left frontal subdural hematoma. The above findings were discussed with Dr. Martinez at 7:14 PM February 22, 2019. This document is electronically signed by Elba Gatica MD., February 22 2019 07:14:53 PM ET Transcribed By: ED Dictated By: ELBA GATICA MD Electronically Authenticated By: ELBA GATICA MD Signed Date/Time: 02/22/191915 DD/ 99 TD/TT: 02/22/191899 [facility] [address] [place] [address] XRay Report Signed Patient: JENNIFER SAGASTUME MR#: [id number] : 1960 Acct:[id number] Age/Sex: 58 / M ADM Date: 02/22/19 Loc: ED Attending Dr: Ordering Physician: THANIA MARTINEZ MD Date of Service: 02/22/19 Procedure(s): XR knee 3V RT Accession Number(s): [id number] cc: THANIA MARTINEZ MD Fluoro Time In Minutes: PROCEDURE: XR KNEE 3V RT TECHNIQUE: Right knee, 2 views HISTORY: pain after fall COMPARISONS: None available FINDINGS: No acute fracture or dislocation. No focal osseous lesions. No joint effusion. IMPRESSION: No acute osseous abnormality is identified. This document is electronically signed by Shireen Hernandez MD., February 22 2019 07:26:20 PM ET Transcribed By: [facility] Dictated By: SHIREEN HERNANDEZ M.D. Electronically Authenticated By: SHIREEN HERNANDEZ M.D. Signed Date/Time: 02/22/191926 DD/ 15 TD/TT: 02/22/191815 - Differential Diagnosis syncope, dysrhythmia, vertigo, dehydration, symptomatic anemia Critical care attestation.: If time is entered above; I have spent that time in minutes in the direct care of this critically ill patient, excluding procedure time. ED Disposition Clinical Impression: Subdural hematoma, Hypomagnesemia, Syncope Disposition: DC/TX-70 ANOTHER TYPE HLTHCARE Is pt being admited?: No Does the pt Need Aspirin: No Condition: Stable Instructions: Syncope (ED) Referrals: RUBEN MILLS [Other] - 3-5 Days Time of Disposition: 20:24 (awaiting transport)
[2019-02-22 18:09] LABS: Basophils % (Auto) 0.3 % (0.0-1.8); Eosinophils % (Auto) 1.1 % (0.0-4.3); Hematocrit 27.1 % (35.5-45.6); Hemoglobin 8.6 gm/dl (11.8-15.2); Lymphocytes # (Auto) 0.7 K/mm3 (1.2-5.4); Lymphocytes % (Auto) 16.8 % (13.4-35.0); Mean Corpuscular HGB Conc 32 % (32-34); Mean Corpuscular Volume 78 fl (84-94); Monocytes # (Auto) 0.3 K/mm3 (0.0-0.8); Monocytes % (Auto) 6.7 % (0.0-7.3); Platelet Count 121 K/mm3 (140-440); Red Blood Count 3.47 M/mm3 (3.65-5.03); Red Cell Distribution Width 19.3 % (13.2-15.2)
[2019-02-22 18:24] LABS: Alanine Aminotransferase 12 units/L (7-56); Albumin 2.4 g/dL (3.9-5); BUN/Creatinine Ratio 14; Blood Urea Nitrogen 7 mg/dL (9-20); Calcium 8.8 mg/dL (8.4-10.2); Hemolysis Index 2
[2019-02-22 18:34] LABS: INR 1.37 (0.87-1.13)
[2019-02-22 18:36] LABS: Partial Thromboplastin Time 33.7 Sec. (24.2-36.6)
[2019-02-22 18:51] LABS: Creatine Kinase MB < 1.0 ng/mL (0.0-4.0)
--- NOTE | 2019-02-22 19:16 | Cat Scan Report ---
PROCEDURE: CT HEAD/BRAIN WO CON TECHNIQUE: Computerized tomography of the head was performed without contrast material. CT DOSE LENGTH PRODUCT: 920.5 mGycm HISTORY: syncope COMPARISONS: Head CT dated August 30, 2018 . FINDINGS: There are bilateral frontal subdural and left temporal collections with imaging characteristics of CS F. These are new since the previous CT dated August 30, 2018 and most likely represent chronic subd ural hematomas. The maximum depth of the right subdural collection measures approximately 6.7 mm. The maximal depth of the left collection measures approximately 11 mm. These result in a mild degree of mass effect on the underlying brain. There is a small focus of increased density in the left frontal paramidline region with imaging anival cteristics consistent with an acute subdural collection (images 29 through 36, series of 64 axial goyo ges). This is also new since the previous study. There is no evidence of acute focal parenchymal abnormality. The ventricles are normal size but are decreased in size compared with the previous study secondary t o mass effect from the subdural hematomas. The visualized portions of the orbits, paranasal and mastoid sinuses are unremarkable. The bony structures are unremarkable. There is no evidence of fracture. IMPRESSION: 1. Interval development of chronic bilateral frontal subdural and left temporal subdural hematomas wi th mass effect. There is evidence of an acute component of the left frontal subdural hematoma. The above findings were discussed with Dr. Apple at 7:14 PM February 22, 2019. This document is electronically signed by Elba Gatica MD., February 22 2019 07:14:53 PM ET
--- NOTE | 2019-02-22 19:27 | XRay Report ---
PROCEDURE: XR KNEE 3V RT TECHNIQUE: Right knee, 2 views HISTORY: pain after fall COMPARISONS: None available FINDINGS: No acute fracture or dislocation. No focal osseous lesions. No joint effusion. IMPRESSION: No acute osseous abnormality is identified. This document is electronically signed by Shireen Hernandez MD., February 22 2019 07:26:20 PM ET
[2019-02-22] MEDS ORDERED: MAGNESIUM SULFATE 2GM/50ML 2 GM/50 ML BAG IV ONE (19:30)
[2019-02-22 21:13] VITALS: BP 129/67
[2019-02-22 21:36] LABS: Bacteria,Urine 2+ /HPF (Negative); Bilirubin,Urine NEG (Negative); Blood,Urine NEG (Negative); Color,Urine Yellow (Yellow); Mucus,Urine FEW /HPF; Protein,Urine <15 mg/dL mg/dL (Negative)
[2019-02-22 21:43] LABS: Amphetamine Screen,Urine PRESUMPTIVE NEGATIVE; Cannabinoid Screen,Urine PRESUMPTIVE NEGATIVE; Cocaine Screen,Urine PRESUMPTIVE NEGATIVE; Methadone Screen,Urine PRESUMPTIVE NEGATIVE; Opiate Screen,Urine PRESUMPTIVE NEGATIVE
[2019-02-22 21:54] LABS: Benzodiazepines Screen,Urine PRESUMPTIVE POSITIVE
== END 2019-02-22 22:31 | disposition other institution (70) ==
LOC: ED 16:50
DX: S06.5X9A Traumatic subdural hemorrhage with loss of consciousness of unspecified duration, initial encounter (principal); E83.42 Hypomagnesemia; R55 Syncope and collapse; K21.9 Gastro-esophageal reflux disease without esophagitis; F17.200 Nicotine dependence, unspecified, uncomplicated; D69.6 Thrombocytopenia, unspecified; W10.8XXA Fall (on) (from) other stairs and steps, initial encounter; Y93.89 Activity, other specified; Y92.89 Other specified places as the place of occurrence of the external cause; Y99.8 Other external cause status
CPT/HCPCS: 36415; 70450; 73562; 80053; 80307; 81001; 82550; 82553; 83690; 83735; 84484; 85025; 85610; 85730; 93005; 93010; 96374; 99285; G0480; J3475; 80320